=== PATIENT | female | born 1940 | race Caucasian/White ===

== ENCOUNTER 2019-03-29 21:24 | Inpatient (IN) | payer MEDICARE, MEDICAID, SELFPAY ==
[2019-04-06] VITALS (10 sets, daily range): BP systolic 110–146; BP diastolic 67–77; PULSE 69–101; RESP 14–24; TEMP 37.1–37.7; O2SAT 92–95
[2019-04-06] MEDS: acetaminophen 325 mg Tablet 650 MG PO ×4 (02:03→22:06)
[2019-04-06] MEDS: HYDROcodone-acetaminophen 5-325 mg Tablet 1 TAB PO (02:04)
[2019-04-06] MEDS: sodium chloride 0.9 % (flush) syringe 10 mL 2 ML IV (05:42)
[2019-04-06] MEDS: albuterol 8 gm MDI 2 PUFF INHALATION ×2 (08:30→15:31)
[2019-04-06] MEDS: topiramate 25 mg Tablet PO (10:48)
[2019-04-06] MEDS: dilTIAZem ER (24HR) 120 mg Capsule PO (10:48)
[2019-04-06] MEDS: loratadine 10 mg Tablet PO (10:48)
[2019-04-06] MEDS: ropinirole 0.25 mg Tablet 0.5 MG PO (10:48)
[2019-04-06] MEDS: gabapentin 300 mg Capsule PO ×3 (10:49→22:06)
[2019-04-06] MEDS: multivitamin therapeutic Tablet 1 TAB PO (10:49)
[2019-04-06] MEDS: pantoprazole DR 40 mg Tablet PO (10:49)
[2019-04-06] MEDS: calcium carb-vit d 600mg/400unit 1 Tablet 1 EACH PO ×2 (10:49→17:10)
[2019-04-06] MEDS: metoprolol tartrate 25 mg Tablet PO (10:49)
[2019-04-06] MEDS: chlorhexidine gluconate 0.12% Btl 473 mL 30 ML MUCOUS MEM ×4 (10:54→22:10)
[2019-04-06 12:31] LABS: Glucose Point of Care 96 mg/dL (70-110)
[2019-04-06 17:54] LABS: Glucose Point of Care 104 mg/dL (70-110)
--- NOTE | 2019-04-06 19:48 | PM.PN ---
Subjective Subjective: Interval history: No new complaints today patient feels well. Awaiting placement at SNF. Patient had indicated that she may want to go home however she lives by herself and at this time given her deconditioning and need for physical therapy it is not safe for her to be home by herself. We discussed with the son the situation yesterday, however he is unable to take care of his mother at this time as his has also recently left the hospital and will not be able to care for 2 people at the same time. C. difficile was negative from stool specimen. Medications: Reviewed: Yes Vitals/I&O/Wt Last Vital Signs Temp 99.5 F 04/06/19 15:31 Pulse 91 04/06/19 15:31 Resp 18 04/06/19 15:31 BP 126/76 04/06/19 15:31 Pulse Ox 92 04/06/19 15:31 04/06/19 04/06/19 04/06/19 06:59 14:59 22:59 Intake Total 360 / 360 240 / 600 Output Total 400 / 400 Balance -40 / -40 240 / 200 Weight last 48 hrs Weight 75.892 kg Weight 75.041 kg Physical Exam Const: COMMON NORMALS: no apparent distress, oriented x3 and alert Resp: COMMON NORMALS: normal respiratory effort, no retractions, no use of accessory muscles and clear to auscultation bilaterally AUSCULTATION: clear to auscultation bilaterally Cardio: COMMON NORMALS: regular rate, regular rhythm, S1 normal heart sound, S2 normal heart sound, no gallops, no murmurs and no rub RATE: regular rate RHYTHM: regular rhythm HEART SOUNDS: S1 normal and S2 normal GI: COMMON NORMALS: normal to inspection, nondistended, normoactive bowel sounds, non-tender, no hepatosplenomegaly and no masses PALPATION: Yes no hepatosplenomegaly Neuro: COMMON NORMALS: oriented x3 and no focal motor deficits SENSORIUM/ORIENTATION: Yes alert Data Labs: Other Labs: All Labs last 24 hrs except CBC/BMP 04/05/19 04/06/19 04/06/19 21:00 10:59 17:27 POC Glucose 143 H 96 104 Other Data: Other data: April 07, 2019 C. difficile PCR negative from stool. A&P Assessment and plan (1) Hip fracture: Patient participating with PT OT. Walked 5 feet today. She is status post surgery of the closed hip fracture. Still awaiting placement at [facility]way facility. We have not heard from her detention regarding insurance preauthorization and this has significantly held up for discharge. Status: Acute Code(s): S72.009A - Fracture of unspecified part of neck of unspecified femur, initial encounter for closed fracture (2) COPD (chronic obstructive pulmonary disease): Patient had mild exacerbation postoperatively which has since resolved. She is on Advair and Atrovent. Continuing oxygen supplementation by nasal cannula to keep sats over 90%. Status: Acute Code(s): J44.9 - Chronic obstructive pulmonary disease, unspecified (3) Anemia: Postop anemia. Also history of iron deficiency pending anemia. s/p Venofer 200 mg for 5 days. Status: Acute Code(s): D64.9 - Anemia, unspecified (4) Sinus tachycardia: Currently well controlled on Cardizem and Lopressor Status: Acute Code(s): R00.0 - Tachycardia, unspecified (5) Dementia: Continue home dose of Topamax hydroxyzine and Requip. Status: Acute Code(s): F03.90 - Unspecified dementia without behavioral disturbance Additional A&P Information Additional A&P Information: DVT prophylaxis with Lovenox Attestations Medical Necessity Statement*: Currently awaiting SNF placement pending authorization from insurance. Coding Level of Care Code Acute Interventional Nurse for Chg Fwd Diagnoses Hip fracture S72.009A COPD (chronic obstructive pulmonary disease) J44.9 Anemia D64.9 Sinus tachycardia R00.0 Dementia F03.90
[2019-04-06 21:44] LABS: Glucose Point of Care 152 mg/dL (70-110)
[2019-04-06] MEDS: enoxaparin 40 mg/0.4 mL Syringe SUBCUT (22:06)
[2019-04-06] MEDS: atorvastatin 40 mg Tablet 20 MG PO (22:07)
[2019-04-07] VITALS (11 sets, daily range): BP systolic 100–162; BP diastolic 52–71; PULSE 74–97; RESP 16–22; TEMP 36.8–37.8; O2SAT 91–95
[2019-04-07] MEDS: acetaminophen 325 mg Tablet 650 MG PO ×3 (04:27→15:32)
[2019-04-07 06:43] LABS: Glucose Point of Care 102 mg/dL (70-110)
[2019-04-07] MEDS: albuterol 8 gm MDI 2 PUFF INHALATION ×2 (08:21→17:07)
[2019-04-07] MEDS: calcium carb-vit d 600mg/400unit 1 Tablet 1 EACH PO ×2 (08:36→17:45)
[2019-04-07] MEDS: sennosides-docusate Tablet 2 TAB PO (08:36)
[2019-04-07] MEDS: topiramate 25 mg Tablet PO (08:36)
[2019-04-07] MEDS: pantoprazole DR 40 mg Tablet PO (08:36)
[2019-04-07] MEDS: gabapentin 300 mg Capsule PO ×2 (08:36→14:02)
[2019-04-07] MEDS: ropinirole 0.25 mg Tablet 0.5 MG PO (08:36)
[2019-04-07] MEDS: dilTIAZem ER (24HR) 120 mg Capsule PO (08:37)
[2019-04-07] MEDS: multivitamin therapeutic Tablet 1 TAB PO (08:37)
[2019-04-07] MEDS: metoprolol tartrate 25 mg Tablet PO (08:37)
[2019-04-07] MEDS: loratadine 10 mg Tablet PO (08:38)
[2019-04-07] MEDS: chlorhexidine gluconate 0.12% Btl 473 mL 30 ML MUCOUS MEM ×3 (08:38→17:45)
--- NOTE | 2019-04-07 11:02 | PC.SOCIAL ---
IMM Update Pg 2 of IMM given and explained to patient who voiced understanding. Copy in chart updated and copy provided to patient.
[2019-04-07 11:14] LABS: Glucose Point of Care 129 mg/dL (70-110)
--- NOTE | 2019-04-07 12:50 | PC.NURSE ---
Diarrhea pt has several bms
--- NOTE | 2019-04-07 14:56 | PC.CHAP ---
Pastoral Care Encounter/Spiritual Assessment Type of Contact [] Declined nuclear technician visit [] Patient/Family/Request visit [] Outpatient visit [x] Follow-up visit [] Physician referral [] Code/Alert [] Routine visit [] Staff referral [] Actively dying [x] Patient sleeping [] Family support [] [] Out of room [] Palliative care [] [] Receiving care in room [] Pre-surgical visit [] Trauma [] Long length of stay [] ICU visit [] Other: Relational/Emotional Strength [] Patient feels connected with others/family/visitors/staff [] Distress [] Loneliness/isolation [] Abandonment Spirituality of Patient [] Person of Peg [] Attends Confucianism of their Peg [] Believes in Prayer [] Reads Bible or Muslim materials [] There are Spiritual issues to be addressed Surgical Brace Maker Interventions [] Prayer [] Active listening [] Non-anxious presence [] Spiritual/emotional support [] Crisis/trauma care [] Spiritual counseling [] Bereavement support [] Provided bereavement packet [] Provided Bible/devotional materials [] Provided toy/stuffed animal, coloring book to patient or family member [] Completed spiritual assessment [] Provided Communion [] Anointing/Bison [] Salvation [] Other: Impact on Illness or Injury [] Angry [] Fearful [] Anxious [] Often cries [] Exhaustion [] Unable to work [] Unable to attend amish [] Unable to walk/stand [] Unable to read [] Unable to drive [] Unable to eat/drink [] Unable to sleep [] Unable to be with family [] Other: Summary Patient sleeping, Surgical Brace Maker will followup. Eduarda Time spent with patient
[2019-04-07 17:00] LABS: Glucose Point of Care 158 mg/dL (70-110)
--- NOTE | 2019-04-10 22:30 | PM.DCS ---
Discharge Providers Date of Admission: 03/29/19 21:24 Date of Discharge: 04/07/19 Attending Provider at Admission: Lisa Blakely MD Attending Provider at Discharge: Lisa Blakely MD Primary Care Provider: Estefania Khan Diagnoses at Discharge Discharge Diagnosis (1) Hip fracture: Status: Acute (2) COPD (chronic obstructive pulmonary disease): Status: Acute (3) Anemia: Status: Acute (4) Sinus tachycardia: Status: Acute (5) Dementia: Status: Acute Reason for Visit Reason for Visit: Reason For Visit: Left Intertrochanteric Hip Fracture Hospital Course Discharge Summary: Ms. Toro was admitted to the hospital after suffering a mechanical fall resulting in left intertrochanteric hip fracture. She underwent open reduction and internal fixation on 03/31/2019. Hospital course was notable for Anemia,which was seen to be due to combination of Iron deficiency anemia and acute blood loss during procedure for which she underwent blood transfusion in OR and completed 5 days of Iv iron. Post op, she was also noted to have mild COPD exacerbation, managed with nebulization and steroids. She worked well with PT. She is now being discharged to retirement in stable condition. Physical Exam Narrative: EXAM NARRATIVE: Gen: [place], alert and oriented, in no acute distress. CVS: S1S2N RS: clear to auscultation B/L Aabd: Soft, ND/NT, BS+ EXT: no cyanosis, clubbing or edema. Discharge Data Vitals: Last Vital Signs Temp 99.0 F 04/07/19 16:48 Pulse 75 04/07/19 17:12 Resp 19 H 04/07/19 17:09 BP 134/60 04/07/19 15:06 Pulse Ox 95 04/07/19 17:09 Discharge Plan Discharge Patient Disposition: Xfer SNF Condition: Stable Prescriptions: New sennosides-docusate sodium 8.6-50 mg Tablet 2 tab PO BID 10 Days Qty: 40 RF: 0 Continued pravastatin 40 mg tablet 40 mg PO BEDTIME RF: 0 alprazolam 0.25 mg tablet 0.5 mg PO QID PRN (Reason: Anxiety) RF: 0 gabapentin 300 mg capsule 300 mg PO TID RF: 0 diltiazem HCl 120 mg capsule,extended release 24hr 120 mg PO DAILY RF: 0 ProAir HFA 90 mcg/actuation HFA aerosol inhaler 2 puff INHALATION Q4H PRN (Reason: Shortness Of Breath) RF: 0 metoprolol tartrate 25 mg tablet 25 mg PO DAILY RF: 0 hydroxyzine pamoate 50 mg capsule 50 mg PO QID PRN (Reason: Anxiety) RF: 0 topiramate 25 mg Tablet 25 mg PO DAILY RF: 0 pantoprazole 40 mg Tablet,Delayed Release (Dr/Ec) 40 mg PO DAILY RF: 0 ferrous sulfate 325 mg (65 mg iron) Tablet 325 mg PO BID RF: 0 ropinirole 0.5 mg Tablet 0.5 mg PO DAILY RF: 0 promethazine 25 mg Tablet 25 mg PO TID PRN (Reason: Nausea And Vomiting) RF: 0 tizanidine 4 mg Capsule 4 mg PO QID PRN (Reason: Muscle Spasm) RF: 0 Calcium 600 with Vitamin D3 600 mg PO DAILY RF: 0 Changed Symbicort 160-4.5 mcg/actuation Hfa Aerosol Inhaler 2 puff INHALATION BID Qty: 0 RF: 0 Discontinued loratadine 10 mg Tablet 10 mg PO DAILY RF: 0 Discharge Orders: Discharge Order (Routine); Ordered 04/07/19 Ordered By: Lisa Blakely Referrals: [facility] [Outside] Bar Davalos MD [Physician] - 05/02/19 1:15 pm Discharge Diet: Usual diet Discharge Activity: As per PT/OT instructions Patient Instructions: COPD, Dementia (GEN), Anemia (DC), COPD Stoplight Discharge Date/Time: 04/07/19 18:52 Discharge Attestations Time Spent in Discharge Care*: less than 30 min Quality Metrics Clinical Quality Measures During this hospital stay, did patient experience: None Coding Level of Care Code Acute Dynamite Packing Machine Operator for Chg Fwd Diagnoses Hip fracture S72.009A COPD (chronic obstructive pulmonary disease) J44.9 Anemia D64.9 Sinus tachycardia R00.0 Dementia F03.90
== END 2019-04-07 18:52 | disposition skilled nursing facility (03) | DRG 481 ==
PROVIDERS: Admitting Provider Student in an Organized Health Care Education/Training Program; Emergency Provider Emergency Medicine; PCP Nurse Practitioner; Referring Provider Student in an Organized Health Care Education/Training Program; Visit Provider Student in an Organized Health Care Education/Training Program
DX: S72.142A Displaced intertrochanteric fracture of left femur, initial encounter for closed fracture (principal); J44.1 Chronic obstructive pulmonary disease with (acute) exacerbation; W19.XXXA Unspecified fall, initial encounter; Y93.9 Activity, unspecified; D50.8 Other iron deficiency anemias; Z23 Encounter for immunization; Y92.029 Unspecified place in mobile home as the place of occurrence of the external cause; K21.9 Gastro-esophageal reflux disease without esophagitis; F41.9 Anxiety disorder, unspecified; M19.90 Unspecified osteoarthritis, unspecified site; G89.29 Other chronic pain
CPT/HCPCS: 27245; 36415; 36416; 51702; 71045; 72192; 73502; 76000; 80053; 81001; 82306; 82962; 83540; 83550; 84484; 85007; 85014; 85018; 85025; 85027; 85610; 85730; 86850; 86900; 86901; 86920; 87493; 90686; 90732; 93005; 93010; 94640; 94762; 96374; 96375; 97110; 97116; 97161; 97165; 97530; 97535; 99024; 99221; 99222; 99231; 99232; 99284; 99285; C1713; J1644; J1650; J1756; J2270; J2405; J2704; J2710; J2920; J2930; J3010; J3490; J3535; J7512; J7611; J7626; P9016

== ENCOUNTER 2019-04-08 06:00 | Outpatient (CLI) | payer MEDICARE, MEDICAID, SELFPAY | END 2019-04-08 06:01 | disposition home or self-care (01) | LOC: LAB 03-22 15:07 | PROVIDERS: Family Provider Nurse Practitioner Family; PCP Family Medicine; Visit Provider Nurse Practitioner Family | DX: E78.5 Hyperlipidemia, unspecified (principal); D64.9 Anemia, unspecified | CPT/HCPCS: 80053; 82607; 83540; 83550; 84443; 85025 ==

== ENCOUNTER 2019-04-26 10:18 | Outpatient (RCR) | payer MEDICARE, MEDICAID, SELFPAY ==
[2019-04-26 11:07] LABS: Anion Gap 18.7 (5-19); Blood Urea Nitrogen 20 mg/dL (8-23); Calcium 10.1 mg/Dl (8.8-10.2); Carbon Dioxide 24 mmol/L (22-29); Chloride 104 mmol/L (98-107); Glucose 95 mg/dL (74-106); Potassium 4.7 mmol/L (3.5-5.1); Sodium 142 mmol/L (136-145)
[2019-04-26 11:26] LABS: Basophils # 0.1 10^3/uL (0.0-0.1); Eosinophils # 0.5 10^3/uL (0.0-0.8); Eosinophils % 6.9 %; Hematocrit 35.6 % (37.0-47.0); Hemoglobin 10.7 g/dL (11.5-15.3); Lymphocytes # 1.3 10^3/uL (0.8-4.8); Lymphocytes % 17.1 %; Mean Corpuscular HGB Conc 30.1 g/dL (30.0-36.0); Mean Corpuscular Hemoglobin 28.8 pg (28.0-34.0); Mean Corpuscular Volume 95.7 fL (81-99); Mean Platelet Volume 10.1 fL (7.4-10.4); Monocytes # 0.9 10^3/uL (0.2-0.9); Neutrophils # 4.3 10^3/uL (1.8-7.7); Neutrophils % 54.7 %; Nucleated Red Blood Cells % 0 %; Platelet Count 343 10^3/cmm (130-400); Red Blood Count 3.72 10^6/uL (4.1-5.3); Red Cell Distribution Width 16.2 % (12.1-15.1); White Blood Count 7.8 10^3/uL (4.0-10.0)
[2019-04-26 13:40] LABS: Slide Review Slide Review Perform
[2019-04-26 13:44] LABS: Absolute Eosinophils 0.6 10^3/cmm (0.0-0.7); Absolute Segmented Neutrophil 3.9 10/cmm (1.6-7.1); Anisocytosis 1+; Band Neutrophils Absolute 0.4 10^3/cmm (0.0-1.2); Eosinophils 8 %; Giant Platelets Trace; Lymphocytes 22 %; Lymphocytes Absolute 1.8 10^3/cmm (1.2-3.4); Monocytes Absolute 0.5 10^3/cmm (0.1-0.6); Platelet Estimate Normal (Normal); Segmented Neutrophils 51 %; Total Cells Counted 100 (0-100)
== END 2019-05-06 23:59 | disposition home or self-care (01) ==
LOC: LAB 10:18
PROVIDERS: Family Provider Nurse Practitioner Family; PCP Family Medicine; Visit Provider Nurse Practitioner Family
DX: Z01.89 Encounter for other specified special examinations (principal)
CPT/HCPCS: 80048; 85007; 85025

== ENCOUNTER → 2019-05-02 14:47 | Outpatient (BNVA) | payer MEDICARE, MEDICAID, SELFPAY | PROVIDERS: PCP Family Medicine; Visit Provider Orthopaedic Surgery | DX: Z87.81 Personal history of (healed) traumatic fracture (principal) | CPT/HCPCS: 73502 ==

== ENCOUNTER 2019-07-12 03:55 | Inpatient (IN) | payer MEDICARE, MEDICAID, SELFPAY ==
[2019-07-12] VITALS (14 sets, daily range): BP systolic 121–163; BP diastolic 70–87; PULSE 82–127; RESP 16–32; TEMP 37–38.8; O2SAT 93–97; BMI 25.0
--- NOTE | 2019-07-12 04:00 | XR_ITS ---
WS: [id number] CHEST XRAY TECHNIQUE: Portable chest. CLINICAL INFORMATION: fever COMPARISON: March 19, 2019 FINDINGS: Heart: Normal cardiac silhouette. Lungs: Moderate to advanced chronic emphysematous changes. Bones: Multiple acute appearing right posterior rib fractures approximately seventh, eighth, and nint h ribs. Small right pleural effusion. Advanced chronic degenerative changes both glenohumeral joints. Sclerosis and fragmentation and right glenohumeral joint. This is chronic in appearance unchanged. IMPRESSION: 1. Multiple acute appearing right posterior rib fractures. 2. Small right pleural effusion. 3. Moderate to advanced chronic emphysematous changes.
--- NOTE | 2019-07-12 04:01 | ECG_ITS ---
Measurements Intervals [place] Rate: 104 P: 64 MN: 163 QRS: 14 QRSD: 89 T: 58 QT: 332 QTc: [address] & T-WAVE ABNORMALITY ABNORMAL RHYTHM ECG Compared to ECG 03/29/2019 20:22:05 Sinus rhythm no longer present T-wave abnormality still present Electronically Signed On 07-12-2019 15:37:12 CDT by Brendan Palafox M.D. [email or web address]
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
[2019-07-12] MEDS: sodium chloride 0.9% 1,000 ML 999 ML IV (04:30)
[2019-07-12] MEDS: acetaminophen 325 mg Tablet 650 MG PO (04:30)
[2019-07-12 04:55] LABS: Alanine Aminotransferase 13 U/L (0-33); Albumin Level 3.9 g/dL (3.5-5.2); Alkaline Phosphatase 152 IU/L (35-105); Aspartate Amino Transferase 21 U/L (0-32); Blood Urea Nitrogen 29 mg/dL (8-23); Calcium 9.1 mg/dL (8.5-10.5); Carbon Dioxide 20 mmol/L (22-29); Chloride 109 mmol/L (98-107); Glucose 127 mg/dL (65-115); Osmolality Calculated 295 mOsm/kg (285-295); Sodium 143 mmol/L (136-145); Total Bilirubin 0.4 mg/dL (0.15-1.2); Total Protein 7.9 g/dL (6.6-8.7)
[2019-07-12 05:20] LABS: Basophils % 0.6 %; Eosinophils # 0.2 10^3/uL (0.0-0.8); Eosinophils % 2.8 %; Hematocrit 30.2 % (37.0-47.0); Hemoglobin 9.8 g/dL (11.5-15.3); Lymphocytes # 0.6 10^3/uL (0.8-4.8); Lymphocytes % 9.1 %; Mean Corpuscular HGB Conc 32.5 g/dL (30.0-36.0); Mean Corpuscular Hemoglobin 28.7 pg (28.0-34.0); Mean Corpuscular Volume 88.6 fL (81-99); Monocytes # 0.9 10^3/uL (0.2-0.9); Monocytes % 13.3 %; Neutrophils # 4.7 10^3/uL (1.8-7.7); Neutrophils % 73.4 %; Nucleated Red Blood Cells % 0 %; Platelet Count 225 10^3/cmm (130-400); Red Blood Count 3.41 10^6/uL (4.1-5.3); Red Cell Distribution Width 13.9 % (12.1-15.1); White Blood Count 6.4 10^3/uL (4.0-10.0)
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
--- NOTE | 2019-07-12 05:25 | CTR_ITS ---
PROCEDURE INFORMATION: Exam: CT Head Without Contrast Exam date and time: 07/12/2019 5:39 AM Age: 78 years old Clinical indication: Altered mental status/memory loss; Additional info: Injury TECHNIQUE: Imaging protocol: Computed tomography of the head without contrast. Total DLP: 771.66 mGy-cm Radiation optimization: All CT scans at this facility use at least one of these dose optimization techniques: automated exposure control; mA and/or kV adjustment per patient size (includes targeted exams where dose is matched to clinical indication); or iterative reconstruction. COMPARISON: CT head wo con* [id number] 09/28/2017 10:56 AM FINDINGS: Brain: There is diffuse cerebral atrophy and chronic microvascular white matter disease. There is symmetric mineralization in the globus pallidus. There is no acute intracranial hemorrhage. Ventricles: There is no significant ventricular dilation. The basal cisterns are unremarkable. Bones/joints: Unremarkable. No acute fracture. Sinuses: The paranasal sinuses are clear. Mastoid air cells: Right mastoid effusion. Left mastoid air cells are clear. Orbits: Left globe prosthesis. Soft tissues: Extracranial soft tissues are unremarkable. CT/CT head wo con* [id number] IMPRESSION: 1. No acute intracranial abnormality. 2. Right mastoid effusion. Radiation Dose CTDIVOL = (mGy): DLP = 771.66 (mGy-cm)
[2019-07-12] MEDS: cefTRIAXone 1,000 MG in sodium chloride 0.9% (plus) 50 ML 100 MG IV (05:26)
[2019-07-12] MEDS: HYDROmorphone 1 mg/mL INJ 1 mL 0.5 MG IVP (05:28)
[2019-07-12 05:39] LABS: Influenza A by IFA Negative (Negative); Influenza B by IFA Negative (Negative)
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
[2019-07-12 05:47] LABS: Lactate (Lactic Acid level) 1.4 mmol/L (0.5-2.2)
[2019-07-12] MEDS: iodixanol 320 mg/mL 100mL Btl IV (05:47)
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
[2019-07-12 05:57] LABS: INR 1.15 (0.8-1.2)
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
[2019-07-12 06:25] LABS: Add Urine Microscopic? YES; Bilirubin Urine Neg (NEGATIVE); Blood Urine Neg (Negative); Glucose Urine UA Norm (Normal); Ketones Urine Negative (Negative); Leukocyte Esterase Urine Negative (Negative); Nitrate Urine Positive (Negative); Protein Urine Neg (Negative); Specific Gravity, Urine 1.015 (1.005-1.030); Urine Appearance Hazy (CLEAR); Urine Color Yellow (Yellow); Urobilinogen Urine 1 mg/dL (Negative); pH Urine 5 (5-7)
[2019-07-12 06:26] LABS: Add Urine Culture? Yes; Bacteria Urine 4+; RBC Urine 0-4 /hpf (0-2); Squamous Epithelial Cell Urine 0-4 (0-5); WBC Urine 15-25 /hpf (0-5)
--- NOTE | 2019-07-12 08:01 | PC.NURSE ---
patient placed on bedpan with good results, no other needs at this time
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
[2019-07-12 10:59] LABS: Ferritin 424 ng/mL (15-150); Iron 20 ug/dL (37-145)
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
[2019-07-12] MEDS: levofloxacin-dextrose 5 % 750 MG/150 ML PREMIX 150 MG IV (12:00)
[2019-07-12] MEDS: sodium chloride 0.9% 1,000 ML 100 ML IV (12:00)
[2019-07-12] MEDS: enoxaparin 40 mg/0.4 mL Syringe SUBCUT (12:18)
[2019-07-12 12:50] LABS: Thyroid Stimulating Hormone 1.27 uIU/mL (0.27-4.20)
[2019-07-12] MEDS: gabapentin 300 mg Capsule PO ×2 (14:59→20:28)
[2019-07-12] MEDS: tizanidine 4 mg Tablet PO (15:55)
[2019-07-12] MEDS: ALPRAZolam 0.5 mg Tablet PO (15:55)
[2019-07-12] MEDS: ferrous sulfate EC 325 mg Tablet PO (17:16)
[2019-07-12] MEDS: atorvastatin 40 mg Tablet 20 MG PO (20:28)
[2019-07-12] MEDS: morphine 4 mg/mL SDV 1 mL 2 MG IVP (20:29)
[2019-07-12] MEDS: ropinirole 0.25 mg Tablet 0.5 MG PO (20:29)
[2019-07-12 20:46] LABS: Coronavirus Lab Test PTC Negative
[2019-07-13] VITALS (13 sets, daily range): BP systolic 118–173; BP diastolic 60–96; PULSE 89–118; RESP 18–32; TEMP 37–38.3; O2SAT 90–95
--- NOTE | 2019-07-13 01:00 | PC.PHAR ---
RENAL DOSING FOR LEVAQUIN 750MG Q24H CHANGED TO Q48H DUE TO CRCL OF 36.7
[2019-07-13] MEDS: sodium chloride 0.9% 1,000 ML 100 ML IV ×2 (01:50→08:54)
[2019-07-13] MEDS: acetaminophen 325 mg Tablet 650 MG PO ×2 (01:50→17:00)
[2019-07-13 04:08] LABS: Basophils % 0.3 %; Eosinophils # 0.1 10^3/uL (0.0-0.8); Eosinophils % 1.5 %; Hematocrit 29.4 % (37.0-47.0); Hemoglobin 9.6 g/dL (11.5-15.3); Lymphocytes # 0.7 10^3/uL (0.8-4.8); Lymphocytes % 9.6 %; Mean Corpuscular HGB Conc 32.7 g/dL (30.0-36.0); Mean Corpuscular Hemoglobin 29.1 pg (28.0-34.0); Mean Corpuscular Volume 89.1 fL (81-99); Mean Platelet Volume 9.7 fL (7.4-10.4); Monocytes % 14.6 %; Neutrophils % 73.4 %; Nucleated Red Blood Cells % 0 %; Platelet Count 196 10^3/cmm (130-400); Red Cell Distribution Width 13.5 % (12.1-15.1); White Blood Count 6.8 10^3/uL (4.0-10.0)
[2019-07-13 04:18] LABS: Anion Gap 18.9 (5-19); Blood Urea Nitrogen 13 mg/dL (8-23); Calcium 8.4 mg/dL (8.5-10.5); Carbon Dioxide 19 mmol/L (22-29); Chloride 104 mmol/L (98-107); Glucose 120 mg/dL (65-115); Osmolality Calculated 283 mOsm/kg (285-295); Potassium 3.9 mmol/L (3.5-5.1); Sodium 138 mmol/L (136-145)
[2019-07-13] MEDS: morphine 4 mg/mL SDV 1 mL 2 MG IVP ×3 (04:18→19:27)
[2019-07-13] MEDS: ALPRAZolam 0.5 mg Tablet PO (04:18)
[2019-07-13] MEDS: pantoprazole DR 40 mg Tablet PO (08:57)
[2019-07-13] MEDS: metoprolol tartrate 25 mg Tablet PO ×2 (08:57→17:31)
[2019-07-13] MEDS: gabapentin 300 mg Capsule PO ×3 (08:57→21:22)
[2019-07-13] MEDS: dilTIAZem ER (24HR) 120 mg Capsule PO (08:57)
[2019-07-13] MEDS: ferrous sulfate EC 325 mg Tablet PO ×2 (08:58→17:31)
[2019-07-13] MEDS: topiramate 25 mg Tablet PO (08:58)
--- NOTE | 2019-07-13 09:03 | CT_ITS ---
WS: [id number] NONCONTRAST CT LEFT KNEE TECHNIQUE: CT left knee with coronal and sagittal reformatted images. CLINICAL INFORMATION: left knee swellng, tenderness, r/o septic joint/arthritis COMPARISON: None. DLP: 240.[address] scans at [facility] use at least one of these dose optimization techniques: automat ed exposure control; mA and/or kV adjustment per patient size (includes targeted exams where dose is matched to clinical indication); or iterative reconstruction. FINDINGS: Moderate tricompartmental arthritis left knee with joint space narrowing. Large suprapatellar joint e ffusion. Intramedullary anupama distal femur appears well seated. Distal quadriceps and patella tendons a ppear intact. Well-corticated interarticular loose bodies. Hypertrophic patella with subchondral cyst ic change. Normal tibial plateau. Fibular head is normal in appearance. Vascular calcification. Hypertrophic ch anges along the joint line. No visualized acute fractures. CT/CT knee LT wo con* [id number] IMPRESSION: 1. Moderate tricompartmental arthritis with joint space narrowing. 2. Moderate to large suprapatellar effusion. No definite visualized fractures. 3. Moderate diffuse soft tissue edema involving the distal thigh and prepatell ar soft tissues may be posttraumatic versus Cellulitis. Recommend correlation f or infection. 4. Well-corticated intra-articular loose bodies. 5. Vascular calcification. 6. Intramedullary anupama in the distal femur appears well seated.
[2019-07-13 09:14] LABS: Procalcitonin 0.13 ng/mL (0-0.5)
[2019-07-13 09:25] LABS: C Reactive Protein 112.5 mg/L (0.0-4.9)
[2019-07-13 10:04] LABS: Erythrocyte Sedimentation Rate 77 mm/hr (0-15)
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
--- NOTE | 2019-07-13 10:12 | PC.NURSE ---
CALCIUM-CARBONATE VIT D IS ORDERED TO GIVE 600 TABLETS, NOTIFIED HOSPITALIST, STATED WOULD CORRECT ORDER.
--- NOTE | 2019-07-13 10:41 | PC.NURSE ---
PATIENT IS OFF UNIT TO CT
--- NOTE | 2019-07-13 14:36 | CTR_ITS ---
PROCEDURE INFORMATION: Exam: CT Abdomen And Pelvis Without Contrast Exam date and time: 07/13/2019 2:45 PM Age: 78 years old Clinical indication: Abdominal pain; Other: UTI with stone; Additional info: R/O pyelonephriis or sotne with UTI TECHNIQUE: Imaging protocol: Computed tomography of the abdomen and pelvis without contrast. Total DLP: 923.07 mGy-cm Radiation optimization: All CT scans at this facility use at least one of these dose optimization techniques: automated exposure control; mA and/or kV adjustment per patient size (includes targeted exams where dose is matched to clinical indication); or iterative reconstruction. COMPARISON: CT pelvis wo con [id number] 03/30/2019 11:19 AM FINDINGS: Lungs: Dependent atelectasis. Small right and trace left pleural effusions. Liver: Normal. No mass. Gallbladder and bile ducts: Normal. No calcified stones. No ductal dilation. Pancreas: Normal. No ductal dilation. Spleen: Calcified granulomas in the spleen. Adrenals: Normal. No mass. Kidneys and ureters: 3.4 cm left renal cyst. The kidneys are otherwise normal. No calculus or hydronephrosis. Stomach and bowel: Unremarkable. No obstruction. No mucosal thickening. Appendix: The appendix is not visualized. Intraperitoneal space: Unremarkable. No free air. No significant fluid collection. Vasculature: Unremarkable. No abdominal aortic aneurysm. Lymph nodes: Unremarkable. No enlarged lymph nodes. Bladder: Unremarkable as visualized. Reproductive: The uterus and right ovary are not visualized. Probable retained left ovary. Bones/joints: Rods and screws in the bilateral femurs. Severe degenerative changes and anterior subluxation at L4-L5. Chronic bilateral L5 pars fractures. Soft tissues: Small fat containing umbilical hernia. CT/CT abdomen pelvis con [id number] IMPRESSION: 1. No renal calculus or hydronephrosis. 2. Benign left renal cyst. No further workup recommended. 3. Small right and trace left pleural effusions. Radiation Dose CTDIVOL = (mGy): DLP = 923.07 (mGy-cm)
[2019-07-13] MEDS: enoxaparin 40 mg/0.4 mL Syringe SUBCUT (15:02)
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
[2019-07-13] MEDS: vancomycin 1,000 MG in sodium chloride 0.9% 250 ML 250 MG IV (17:06)
[2019-07-13 17:25] LABS: Apprearance, Body Fluid TURBID (CLEAR); Body Fluid WBC 8320 /uL; Color, Body Fluid AMBER (PALE YELLOW); RBC, Body Fluid 10 10^3/uL (0-0)
[2019-07-13 17:26] LABS: Appearance Synovial Fluid TURBID (CLEAR); Color Synovial Fluid AMBER (PALE YELLOW); RBC Synovial Fluid 10 10^3/uL (0-0); WBC Synovial Fluid 8320 /uL (0-150)
[2019-07-13 17:27] LABS: PATH Referal YES
[2019-07-13 18:18] LABS: Glucose Synovial Fluid 96 mg/dL
[2019-07-13] MEDS: ondansetron 2 mg/ML SDV 2 mL 4 MG IVP (19:28)
[2019-07-13] MEDS: atorvastatin 40 mg Tablet 20 MG PO (21:21)
[2019-07-13] MEDS: ropinirole 0.25 mg Tablet 0.5 MG PO (21:22)
[2019-07-14] VITALS (13 sets, daily range): BP systolic 100–143; BP diastolic 52–66; PULSE 77–99; RESP 16–24; TEMP 36.5–38.8; O2SAT 92–100
[2019-07-14] MEDS: ALPRAZolam 0.5 mg Tablet PO (00:24)
[2019-07-14] MEDS: morphine 4 mg/mL SDV 1 mL 2 MG IVP ×2 (01:11→23:13)
[2019-07-14] MEDS: tizanidine 4 mg Tablet PO (04:17)
[2019-07-14] MEDS: hyDROXYzine 25 mg Capsule 50 MG PO (04:17)
[2019-07-14] MEDS: sodium chloride 0.9% 1,000 ML 100 ML IV ×3 (04:24→20:24)
[2019-07-14 05:04] LABS: Basophils % 0.5 %; Eosinophils # 0.2 10^3/uL (0.0-0.8); Eosinophils % 3.2 %; Hematocrit 28.6 % (37.0-47.0); Hemoglobin 9.1 g/dL (11.5-15.3); Lymphocytes # 0.7 10^3/uL (0.8-4.8); Lymphocytes % 13.2 %; Mean Corpuscular HGB Conc 31.8 g/dL (30.0-36.0); Mean Corpuscular Hemoglobin 28.9 pg (28.0-34.0); Mean Corpuscular Volume 90.8 fL (81-99); Mean Platelet Volume 9.8 fL (7.4-10.4); Monocytes # 0.8 10^3/uL (0.2-0.9); Monocytes % 13.4 %; Neutrophils # 3.9 10^3/uL (1.8-7.7); Neutrophils % 68.6 %; Nucleated Red Blood Cells % 0 %; Platelet Count 189 10^3/cmm (130-400); Red Blood Count 3.15 10^6/uL (4.1-5.3); Red Cell Distribution Width 13.7 % (12.1-15.1); White Blood Count 5.6 10^3/uL (4.0-10.0)
[2019-07-14 05:26] LABS: Alanine Aminotransferase 7 U/L (0-33); Albumin Level 2.7 g/dL (3.5-5.2); Alkaline Phosphatase 114 IU/L (35-105); Aspartate Amino Transferase 13 U/L (0-32); Blood Urea Nitrogen 15 mg/dL (8-23); Calcium 8.1 mg/dL (8.5-10.5); Carbon Dioxide 20 mmol/L (22-29); Chloride 108 mmol/L (98-107); Globulin 3.6 g/dL (1.3-4.6); Glucose 103 mg/dL (65-115); Magnesium 1.2 mg/dL (1.7-2.3); Osmolality Calculated 289 mOsm/kg (285-295); Phosphorus 3.5 mg/dL (2.5-4.5); Sodium 141 mmol/L (136-145); Total Bilirubin 0.3 mg/dL (0.15-1.2); Total Protein 6.3 g/dL (6.6-8.7)
[2019-07-14] MEDS: calcium carb-vit d 600mg/400unit 1 Tablet 600 EACH PO (08:56)
[2019-07-14] MEDS: metoprolol tartrate 25 mg Tablet PO ×2 (08:56→16:59)
[2019-07-14] MEDS: gabapentin 300 mg Capsule PO ×3 (08:57→20:25)
[2019-07-14] MEDS: pantoprazole DR 40 mg Tablet PO (08:57)
[2019-07-14] MEDS: dilTIAZem ER (24HR) 120 mg Capsule PO (08:57)
[2019-07-14] MEDS: ferrous sulfate EC 325 mg Tablet PO ×2 (08:57→16:59)
[2019-07-14] MEDS: topiramate 25 mg Tablet PO (08:58)
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
[2019-07-14] MEDS: magnesium sulfate premix 2 GM/50 ML PIGGYBACK IV (10:44)
--- NOTE | 2019-07-14 15:15 | PC.RESP ---
Information to patient for Pulmonary Rehab.
[2019-07-14] MEDS: enoxaparin 40 mg/0.4 mL Syringe SUBCUT (15:31)
[2019-07-14] MEDS: atorvastatin 40 mg Tablet 20 MG PO (20:25)
[2019-07-14] MEDS: ropinirole 0.25 mg Tablet 0.5 MG PO (20:25)
[2019-07-15] VITALS (13 sets, daily range): BP systolic 118–149; BP diastolic 62–79; PULSE 64–114; RESP 15–20; TEMP 36.4–37.7; O2SAT 94–98
--- NOTE | 2019-07-15 00:10 | PC.NURSE ---
Pt alerted staff the need to urinate, bed bhat placed. Pt missed bed bhat and a large amount of urine was noted in bed linen. bed linens changed
[2019-07-15] MEDS: acetaminophen 325 mg Tablet 650 MG PO ×3 (00:39→15:45)
[2019-07-15] MEDS: ALPRAZolam 0.5 mg Tablet PO (01:23)
--- NOTE | 2019-07-15 01:53 | PC.NURSE ---
PAIN Pt COMPLAINED OF RIGHT SIDED RIB PAIN 7/10 PAIN SCALE, 2MG MORPHINE ADMINISTERED PER ORDERS AT 1115 BY JAKE WARD RN. Pt REASSESSED, WAS RESTING WITH EYES CLOSED, RESPIRATIONS 18. Pt CONTINUED TO COMPLAIN OF PAIN 6/10, 650MG OF TYLENOL ADMINISTERED PER ORDERS AT 0040 WITH POSITION CHANGE. Pt REASSESSED STATING NO RELIEF OF PAIN. Pt STATED SHE WANTED THE PAIN TO QUIT SO SHE COULD GET SOME SLEEP. .5 MG OF XANAX ADMINISTERED PER ORDERS AT 0120, WENT AND REASSESSED, Pt WAS CRYING. STAFF REPOSITIONED Pt AT THIS TIME. WILL CONTINUE TO MONITOR AND REEVALUATE.
--- NOTE | 2019-07-15 02:02 | PC.NURSE ---
PILLOWS PLACED BILATERALLY TO PROMOTE COMFORT AND EASE RIB PAIN
--- NOTE | 2019-07-15 02:41 | PC.NURSE ---
PAIN Pt CONTINUES TO COMPLAIN OF PAIN 8/[address] DAWN CONTACTED AT 0220. TELEPHONE ORDER 2MG DILAUDID IVP ONCE NOW PER
[2019-07-15] MEDS: HYDROmorphone 1 mg/mL INJ 1 mL 2 MG IVP (03:07)
--- NOTE | 2019-07-15 03:38 | PC.NURSE ---
1 MG DILAUDID GIVEN BY RASHEED GÓMEZ RN AT 0307. REASSESSED AT 0337, Pt IS RESTING WITH EYES CLOSED, BREATHING NORMAL AND UNLABORED. RESPIRATION 20 O2 IS 93% ON 3L NC, HR 92. WILL CONTINUE TO MONITOR
[2019-07-15 05:07] LABS: Basophils % 0.4 %; Eosinophils # 0.2 10^3/uL (0.0-0.8); Eosinophils % 2.8 %; Hematocrit 30.2 % (37.0-47.0); Hemoglobin 9.6 g/dL (11.5-15.3); Lymphocytes # 0.8 10^3/uL (0.8-4.8); Lymphocytes % 14.5 %; Mean Corpuscular HGB Conc 31.8 g/dL (30.0-36.0); Mean Corpuscular Volume 91.2 fL (81-99); Mean Platelet Volume 9.7 fL (7.4-10.4); Monocytes # 0.7 10^3/uL (0.2-0.9); Monocytes % 13.3 %; Neutrophils # 3.7 10^3/uL (1.8-7.7); Neutrophils % 67.5 %; Nucleated Red Blood Cells % 0 %; Platelet Count 212 10^3/cmm (130-400); Red Blood Count 3.31 10^6/uL (4.1-5.3); Red Cell Distribution Width 13.7 % (12.1-15.1); White Blood Count 5.4 10^3/uL (4.0-10.0)
[2019-07-15 05:23] LABS: Alanine Aminotransferase 9 U/L (0-33); Albumin Level 2.9 g/dL (3.5-5.2); Alkaline Phosphatase 159 IU/L (35-105); Anion Gap 15.7 (5-19); Aspartate Amino Transferase 20 U/L (0-32); Blood Urea Nitrogen 13 mg/dL (8-23); Calcium 8.6 mg/dL (8.5-10.5); Carbon Dioxide 20 mmol/L (22-29); Chloride 106 mmol/L (98-107); Glucose 109 mg/dL (65-115); Magnesium 1.7 mg/dL (1.7-2.3); Osmolality Calculated 283 mOsm/kg (285-295); Phosphorus 3.9 mg/dL (2.5-4.5); Potassium 3.7 mmol/L (3.5-5.1); Sodium 138 mmol/L (136-145); Total Bilirubin 0.3 mg/dL (0.15-1.2); Total Protein 6.9 g/dL (6.6-8.7)
[2019-07-15] MEDS: sodium chloride 0.9% 1,000 ML 100 ML IV (08:11)
[2019-07-15] MEDS: metoprolol tartrate 25 mg Tablet PO ×2 (08:14→17:21)
[2019-07-15] MEDS: gabapentin 300 mg Capsule PO ×3 (09:16→20:54)
[2019-07-15] MEDS: pantoprazole DR 40 mg Tablet PO (09:19)
[2019-07-15] MEDS: dilTIAZem ER (24HR) 120 mg Capsule PO (09:19)
[2019-07-15] MEDS: ferrous sulfate EC 325 mg Tablet PO (09:19)
[2019-07-15] MEDS: calcium carb-vit d 600mg/400unit 1 Tablet 600 EACH PO (09:51)
[2019-07-15] MEDS: topiramate 25 mg Tablet PO (09:51)
--- NOTE | 2019-07-15 10:28 | USCV_ITS ---
Francy Toro Age: 78 Gender: F : 1940 Exam Date: 07/15/2019 15:08 Ordering Phys: Kolby Arndt MD Technologist: Tano Alexander Exam Location: [facility] [place] Indication: R/O DVT HISTORY: Bed stasis. PROCEDURES: Examined bilaterally were the greater saphenous, common femoral, femoral, profunda, popliteal, posterior tibial veins, and peroneal trunk.. FINDINGS: All veins examined appear free of thrombus. No filling defects on color Doppler flow analysis. Vein flow and caliber vary with respiration. Increase in venous flow with augmentation. All veins appear compressible.. CONCLUSIONS No evidence of right lower extremity DVT. No evidence of left lower extremity DVT. Adan Beltran MD (Electronically Signed) Final Date: 15 July 2019 15:58 S
--- NOTE | 2019-07-15 10:50 | XR_ITS ---
WS: [id number] CHEST XRAY TECHNIQUE: Portable chest. CLINICAL INFORMATION: sob COMPARISON: July 12, 2019 FINDINGS: Heart: Cardiomegaly. Aortic calcification. Lungs: Moderate chronic emphysematous changes with chronic appearing interstitial thickening. No acut e pulmonary infiltrates. Bones: Mild thoracic curve convex right. Hypertrophic changes thoracic spine. Advanced degenerative a rthritis right glenohumeral joint. XR/XR chest 1V portable [id number] IMPRESSION: 1. Moderate chronic emphysematous changes with chronic appearing interstitial thickening. 2. No acute pulmonary infiltrates. 3. Stable cardiomegaly.
[2019-07-15 11:54] LABS: Procalcitonin 0.24 ng/mL (0-0.5)
[2019-07-15 12:04] LABS: C Reactive Protein 135.4 mg/L (0.0-4.9)
[2019-07-15] MEDS: levofloxacin-dextrose 5 % 750 MG/150 ML PREMIX 100 MG IV (14:03)
[2019-07-15] MEDS: enoxaparin 40 mg/0.4 mL Syringe SUBCUT (14:04)
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
--- NOTE | 2019-07-15 16:32 | XR_ITS ---
WS: [id number] WRIST LEFT TECHNIQUE: 2 views of the left wrist CLINICAL INFORMATION: swelling, limited ROM, PAIN COMPARISON: None. FINDINGS: Osteopenia. Slight ulnar positive variance. Advanced degenerative arthritis at the radiocarpal joint. Normal scaphoid and lunate. Diffuse soft tissue edema involving the wrist. Vascular calcification. No visualized acute fractures. XR/XR wrist LT 2V [id number] IMPRESSION: 1. Diffuse soft tissue edema. Recommend correlation for cellulitis. 2. No acute fractures. 3. Advanced degenerative arthritis at the radiocarpal joint with slight ulna p ositive variance.
[2019-07-15] MEDS: ropinirole 0.25 mg Tablet 0.5 MG PO (20:54)
[2019-07-15] MEDS: atorvastatin 40 mg Tablet 20 MG PO (20:54)
[2019-07-16] VITALS (8 sets, daily range): BP systolic 133–174; BP diastolic 58–80; PULSE 91–101; RESP 1–18; TEMP 36.6–37.3; O2SAT 95–100
[2019-07-16] MEDS: acetaminophen 325 mg Tablet 650 MG PO ×2 (00:28→08:31)
[2019-07-16 05:08] LABS: Basophils % 0.2 %; Eosinophils # 0.3 10^3/uL (0.0-0.8); Eosinophils % 5.9 %; Hemoglobin 8.8 g/dL (11.5-15.3); Lymphocytes # 0.6 10^3/uL (0.8-4.8); Lymphocytes % 13.2 %; Mean Corpuscular HGB Conc 31.4 g/dL (30.0-36.0); Mean Corpuscular Hemoglobin 27.9 pg (28.0-34.0); Mean Corpuscular Volume 88.9 fL (81-99); Mean Platelet Volume 9.7 fL (7.4-10.4); Monocytes # 0.5 10^3/uL (0.2-0.9); Neutrophils # 2.9 10^3/uL (1.8-7.7); Neutrophils % 67.3 %; Nucleated Red Blood Cells % 0 %; Platelet Count 231 10^3/cmm (130-400); Red Blood Count 3.15 10^6/uL (4.1-5.3); Red Cell Distribution Width 13.7 % (12.1-15.1); White Blood Count 4.2 10^3/uL (4.0-10.0)
[2019-07-16 05:34] LABS: Alanine Aminotransferase 13 U/L (0-33); Albumin Level 2.8 g/dL (3.5-5.2); Alkaline Phosphatase 178 IU/L (35-105); Anion Gap 13.7 (5-19); Aspartate Amino Transferase 25 U/L (0-32); Blood Urea Nitrogen 13 mg/dL (8-23); Calcium 9.3 mg/dL (8.5-10.5); Carbon Dioxide 21 mmol/L (22-29); Chloride 106 mmol/L (98-107); Globulin 3.5 g/dL (1.3-4.6); Glucose 113 mg/dL (65-115); Magnesium 1.7 mg/dL (1.7-2.3); Osmolality Calculated 281 mOsm/kg (285-295); Phosphorus 3.3 mg/dL (2.5-4.5); Potassium 3.7 mmol/L (3.5-5.1); Sodium 137 mmol/L (136-145); Total Bilirubin 0.2 mg/dL (0.15-1.2); Total Protein 6.3 g/dL (6.6-8.7)
[2019-07-16] MEDS: metoprolol tartrate 25 mg Tablet PO (08:31)
[2019-07-16] MEDS: gabapentin 300 mg Capsule PO (08:31)
[2019-07-16] MEDS: ferrous sulfate EC 325 mg Tablet PO (08:32)
[2019-07-16] MEDS: calcium carb-vit d 600mg/400unit 1 Tablet 600 EACH PO (08:32)
[2019-07-16] MEDS: pantoprazole DR 40 mg Tablet PO (08:32)
[2019-07-16] MEDS: topiramate 25 mg Tablet PO (08:33)
[2019-07-16] MEDS: dilTIAZem ER (24HR) 120 mg Capsule PO (08:33)
--- NOTE | 2019-07-16 09:49 | PC.SOCIAL ---
IMM Update Pg 2 of IMM given and explained to patient who verbalized understanding. Copy provided to patient.
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
== END 2019-07-16 11:58 | disposition skilled nursing facility (03) | DRG 565 ==
LOC: ER 09:18 → MEDSURG 14:34
PROVIDERS: Emergency Medicine; Specialist; Admitting Provider Family Medicine; Emergency Provider Family Medicine; Family Provider Nurse Practitioner Family; PCP Family Medicine; Visit Provider Family Medicine
DX: M25.462 Effusion, left knee (principal); S22.41XA Multiple fractures of ribs, right side, initial encounter for closed fracture; T74.11XA Adult physical abuse, confirmed, initial encounter; N30.00 Acute cystitis without hematuria; S42.101D Fracture of unspecified part of scapula, right shoulder, subsequent encounter for fracture with routine healing; S22.39XD Fracture of one rib, unspecified side, subsequent encounter for fracture with routine healing; S22.050D Wedge compression fracture of T5-T6 vertebra, subsequent encounter for fracture with routine healing; X58.XXXA Exposure to other specified factors, initial encounter; Y92.019 Unspecified place in single-family (private) house as the place of occurrence of the external cause; Y04.2XXA Assault by strike against or bumped into by another person, initial encounter; I48.0 Paroxysmal atrial fibrillation; J44.9 Chronic obstructive pulmonary disease, unspecified; D64.9 Anemia, unspecified; E78.5 Hyperlipidemia, unspecified; Z91.81 History of falling; M54.9 Dorsalgia, unspecified; F41.9 Anxiety disorder, unspecified; M17.12 Unilateral primary osteoarthritis, left knee; F03.90 Unspecified dementia, unspecified severity, without behavioral disturbance, psychotic disturbance, mood disturbance, and anxiety; K57.90 Diverticulosis of intestine, part unspecified, without perforation or abscess without bleeding; Z98.890 Other specified postprocedural states; Z96.642 Presence of left artificial hip joint; Z90.01 Acquired absence of eye; Z79.51 Long term (current) use of inhaled steroids; J98.8 Other specified respiratory disorders; S22.21XD Fracture of manubrium, subsequent encounter for fracture with routine healing; B96.20 Unspecified Escherichia coli [E. coli] as the cause of diseases classified elsewhere
CPT/HCPCS: 12345; 36415; 70450; 71045; 71275; 73100; 73562; 73700; 74176; 77075; 80048; 80053; 80500; 81001; 82728; 82945; 83540; 83605; 83735; 84100; 84145; 84443; 85025; 85045; 85610; 85651; 86140; 87040; 87070; 87075; 87077; 87086; 87186; 87205; 87635; 87804; 89050; 93005; 93970; 94640; 94760; 94762; 96372; 96375; 97110; 97116; 97161; 97166; 97530; 97535; 99284; G0378; J0696; J0743; J1170; J1650; J1956; J2270; J2405; J3370; J3475; J7030; J7050; Q9967

== ENCOUNTER → 2020-08-03 07:56 | Outpatient (BNVA) | payer MEDICARE, MEDICAID, SELFPAY | PROVIDERS: Family Provider Nurse Practitioner Family; PCP Nurse Practitioner Family; Visit Provider Psychiatry & Neurology Psychiatry | DX: F41.9 Anxiety disorder, unspecified (principal); F32.9 Major depressive disorder, single episode, unspecified | CPT/HCPCS: 90792 ==

== ENCOUNTER → 2020-10-26 10:36 | Outpatient (BNVA) | payer MEDICARE, MEDICAID, SELFPAY | PROVIDERS: Family Provider Nurse Practitioner Family; PCP Nurse Practitioner Family; Visit Provider Psychiatry & Neurology Psychiatry | DX: F41.9 Anxiety disorder, unspecified (principal); F32.9 Major depressive disorder, single episode, unspecified | CPT/HCPCS: 99214 ==

== ENCOUNTER → 2021-01-25 08:31 | Outpatient (BNVA) | payer MEDICARE, MEDICAID, SELFPAY | PROVIDERS: Family Provider Nurse Practitioner Family; PCP Nurse Practitioner Family; Visit Provider Psychiatry & Neurology Psychiatry | DX: F41.9 Anxiety disorder, unspecified (principal); F32.9 Major depressive disorder, single episode, unspecified | CPT/HCPCS: 99214 ==

== ENCOUNTER → 2021-04-18 10:22 | Outpatient (BNVA) | payer MEDICARE, MEDICAID, SELFPAY | PROVIDERS: Family Provider Nurse Practitioner Family; PCP Nurse Practitioner Family; Referring Provider Nurse Practitioner Family; Visit Provider Physician Assistant | DX: S52.502A Unspecified fracture of the lower end of left radius, initial encounter for closed fracture (principal); W19.XXXA Unspecified fall, initial encounter; Z46.89 Encounter for fitting and adjustment of other specified devices; S52.592D Other fractures of lower end of left radius, subsequent encounter for closed fracture with routine healing; X58.XXXD Exposure to other specified factors, subsequent encounter | CPT/HCPCS: 73110; 97760; L3982 ==

== ENCOUNTER 2021-04-18 11:31 | Outpatient (CLI) | payer MEDICARE, MEDICAID, SELFPAY | END 2021-04-18 11:32 | disposition home or self-care (01) | LOC: SPT 11:32 | PROVIDERS: Family Provider Nurse Practitioner Family; PCP Nurse Practitioner Family; Visit Provider Physician Assistant | DX: Z46.89 Encounter for fitting and adjustment of other specified devices (principal); S52.592D Other fractures of lower end of left radius, subsequent encounter for closed fracture with routine healing; X58.XXXD Exposure to other specified factors, subsequent encounter | CPT/HCPCS: 97760; L3982 ==

== ENCOUNTER → 2021-04-19 09:42 | Outpatient (BNVA) | payer MEDICARE, MEDICAID, SELFPAY | PROVIDERS: Family Provider Nurse Practitioner Family; PCP Nurse Practitioner Family; Visit Provider Psychiatry & Neurology Psychiatry | DX: F41.9 Anxiety disorder, unspecified (principal); F32.9 Major depressive disorder, single episode, unspecified; S52.502A Unspecified fracture of the lower end of left radius, initial encounter for closed fracture | CPT/HCPCS: 99214 ==

== ENCOUNTER → 2021-05-02 09:51 | Outpatient (BNVA) | payer MEDICARE, MEDICAID, SELFPAY | PROVIDERS: Family Provider Nurse Practitioner Family; PCP Nurse Practitioner Family; Visit Provider Physician Assistant | DX: S52.502A Unspecified fracture of the lower end of left radius, initial encounter for closed fracture (principal); X58.XXXA Exposure to other specified factors, initial encounter | CPT/HCPCS: 73110 ==

== ENCOUNTER → 2021-05-23 10:22 | Outpatient (BNVA) | payer MEDICARE, MEDICAID, SELFPAY | PROVIDERS: Family Provider Nurse Practitioner Family; PCP Nurse Practitioner Family; Visit Provider Physician Assistant | DX: S52.502D Unspecified fracture of the lower end of left radius, subsequent encounter for closed fracture with routine healing (principal); X58.XXXD Exposure to other specified factors, subsequent encounter; Z46.89 Encounter for fitting and adjustment of other specified devices; S52.592D Other fractures of lower end of left radius, subsequent encounter for closed fracture with routine healing | CPT/HCPCS: 73110; 97760; L3908 ==

== ENCOUNTER 2021-05-23 15:37 | Outpatient (CLI) | payer MEDICARE, MEDICAID, SELFPAY | END 2021-05-23 15:38 | disposition home or self-care (01) | LOC: SPT 15:39 | PROVIDERS: Family Provider Nurse Practitioner Family; PCP Nurse Practitioner Family; Visit Provider Physician Assistant | DX: Z46.89 Encounter for fitting and adjustment of other specified devices (principal); S52.592D Other fractures of lower end of left radius, subsequent encounter for closed fracture with routine healing; X58.XXXD Exposure to other specified factors, subsequent encounter | CPT/HCPCS: 97760; L3908 ==

== ENCOUNTER → 2021-07-26 10:27 | Outpatient (BNVA) | payer MEDICARE, MEDICAID, SELFPAY | PROVIDERS: Family Provider Nurse Practitioner Family; PCP Nurse Practitioner Family; Visit Provider Psychiatry & Neurology Psychiatry | DX: F41.9 Anxiety disorder, unspecified (principal); F32.9 Major depressive disorder, single episode, unspecified; S52.502A Unspecified fracture of the lower end of left radius, initial encounter for closed fracture | CPT/HCPCS: 99214 ==

== ENCOUNTER → 2021-11-13 13:27 | Outpatient (BNVA) | payer MEDICARE, MEDICAID, SELFPAY | PROVIDERS: Family Provider Nurse Practitioner Family; PCP Nurse Practitioner Family; Visit Provider Internal Medicine | DX: I48.0 Paroxysmal atrial fibrillation (principal); E78.5 Hyperlipidemia, unspecified; I34.0 Nonrheumatic mitral (valve) insufficiency; J44.9 Chronic obstructive pulmonary disease, unspecified; M79.89 Other specified soft tissue disorders | CPT/HCPCS: 99214 ==

== ENCOUNTER 2021-11-15 10:48 | Emergency (ER) | payer MEDICARE, MEDICAID, SELFPAY ==
[2021-11-15 10:53] VITALS: BP 136/96; PULSE 96; RESP 18; O2SAT 98
--- NOTE | 2021-11-15 10:53 | ECG_ITS ---
[facility] Test Date: 2021-11-15 Pat Name: Francy Toro Department: Room: Gender: Female Slab Worker: : 1940 Requested By: Santos Pulido Order Number: [id number] Marcelina MD: Billy Kaplan M.D. Measurements Intervals [place] Rate: 97 P: 25 MI: 181 QRS: -12 QRSD: 111 T: 86 QT: 353 QTc: 450 Interpretive Statements SINUS RHYTHM LEFT VENTRICULAR HYPERTROPHY AND ST-T CHANGE [VOLTAGE CRITERIA PLUS ST/T ABNORMALITY] Poor R wave progression Compared to ECG 07/12/2019 10:16:54 Left ventricular hypertrophy now present ST (T wave) deviation now present Sinus tachycardia no longer present T-wave abnormality no longer present Electronically Signed On 11-15-2021 18:23:22 CDT by Billy Kaplan M.D. [email or web address]
[2021-11-15 10:58] VITALS: BP 154/77; PULSE 100; RESP 16; TEMP 36.4; O2SAT 94; BMI 28.1
--- NOTE | 2021-11-15 11:21 | ED.C_ITS ---
HPI - Psych General: Chief Complaint: Psychiatric Symptoms Stated Complaint: AGUEDA PSYCH EVAL Time Seen by Provider: 11/15/21 10:55 History of Present Illness: Patient is brought in from the long-term with concerns for increased aggression and suicidal ideation. Patient is a history of dementia and is recently been becoming more aggressive. Per staff she is making threats to kill her self with her scissors. They have removed her scissors, and she continues to ask for them. Upon arrival here the patient is cooperative. She is alert and oriented x3. She states that she has no intention of hurting herself or others. I tried to talk to her about her threats and explained that that is why they are concerned, but she keeps repeating that she would not hurt anybody else. Review of Systems Const: Denies: fever(s) or body aches Eyes: Denies: change in vision or blurry vision ENMT: Denies: throat pain or odynophagia Card: Denies: chest pain or palpitations Resp: Denies: dyspnea or productive cough GI: Denies: abdominal pain, nausea or vomiting : Denies: flank pain or dysuria Musc: Denies: neck pain or back pain Skin/Breast: Denies: rash or pruritus Neuro: Denies: headache(s) or numbness in extremities Psych: Reports: other (Denies suicidal or homicidal ideation); Denies: anxiety or change in appetite Endo: Denies: polyuria or excessive sweating PFS ED PFSH: Medical History Anxiety Anxiety Arthritis COPD (chronic obstructive pulmonary disease) Dementia Depression Diverticulosis Gastritis Hip fracture Hyperlipidemia Mitral regurgitation Paroxysmal atrial fibrillation Psychiatric care Sinus tachycardia Surgical History History of ankle surgery History of back surgery History of colonoscopy (~03/2019) History of esophagogastroduodenoscopy (EGD) (~03/2019) History of left hip replacement (~03/2019) Hx of breast biopsy Hx of enucleation of left eyeball Hx of hysterectomy Family History Father CAD (coronary artery disease) Mother CAD (coronary artery disease) Brother Diabetes Lung disease Denies family history of Clotting disorder Dementia Chronic kidney disease (CKD) Suicide Anesthesia complication Bleeding disorder Cancer Stroke Social History Smoking and tobacco status: never smoked Second hand smoke exposure: No Alcohol intake: never Adopted: No Caregiver/support person: Yes Lives independently: No (LIVES IN [facility] ) Housing: [facility] Marital status: / service: No Current occupational status: retired Current occupational exposures/hazards: No Pets and animals: No History of recent travel: No Current gender identity: Female Peg/Zoroastrian: Bahai Special peg needs: No Agree to transfusion: No Financial difficulty paying for basics: Decline to Answer Physical Exam Const: COMMON NORMALS: no acute distress, patient oriented x3, healthy appearing and alert HENMT: COMMON NORMALS: normocephalic and atraumatic HEAD & SCALP: normocephalic and atraumatic Eye: COMMON NORMALS: Equal, round and reactive pupils present and EOMs intact bilaterally PUPIL: Yes Equal, round and reactive pupils present Neck/C-Spine: COMMON NORMALS: full ROM and supple Resp: COMMON NORMALS: normal respiratory effort, No retractions and No use of accessory muscles Cardio: COMMON NORMALS: regular rate and regular rhythm RATE: regular rate RHYTHM: regular rhythm GI: COMMON NORMALS: Normal to inspection, nondistended, normoactive bowel sounds present, Soft to palpation and non-tender PALPATION: Yes Soft to palpation Back/Pelvis: COMMON NORMALS: thoracic and lumbar spine normal to inspection and no thoracic nor lumbar tenderness Extremity: COMMON NORMALS: normal to inspection and full ROM Neuro: COMMON NORMALS: patient oriented x3 SENSORIUM/ORIENTATION: Yes alert Psych: COMMON NORMALS: mental status grossly normal and cooperative Skin: COMMON NORMALS: no rashes or lesions noted and no wounds GENERAL SKIN EXAM: no rashes or lesions noted Course Vital Signs: Vital signs: Vital Signs Temperature 97.5 F L 11/15/21 10:58 Pulse Rate 100 11/15/21 10:58 Respiratory Rate 16 11/15/21 10:58 Blood Pressure 135/86 11/15/21 13:17 Pulse Oximetry 99 11/15/21 13:17 Oxygen Delivery Me thod 11/15/21 10:53 MDM - Psych Medical Decision Making Patient is brought in from the long-term with concerns for increased aggression and suicidal ideation. Patient is a history of dementia and is recently been becoming more aggressive. Per staff she is making threats to kill her self with her scissors. They have removed her scissors, and she continues to ask for them. Upon arrival here the patient is cooperative. She is alert and oriented x3. She states that she has no intention of hurting herself or others. I tried to talk to her about her threats and explained that that is why they are concerned, but she keeps repeating that she would not hurt anybody else. Physical exam is otherwise unremarkable. Will consult psych, and reassess. Dr. Paige with psychiatry has seen and evaluated the patient, and agree she is stable for discharge back to the nursing facility. Will discharge at this time. Lab Data : 11/15/21 11:55 11/15/21 11:55 Radiology Impressions Chest X-Ray 11/15/21 11:27 IMPRESSION: No acute abnormality identified. Head CT 11/15/21 11:27 IMPRESSION: 1. No acute intracranial hemorrhage or edema. 2. Mild atrophy with moderate small vessel ischemic type changes. Similar to 07/12/2019. Laboratory Results WBC 7.0 10^3/uL (4.0-10.0) 11/15/21 11:55 RBC 4.03 10^6/uL (4.1-5.3) L 11/15/21 11:55 Hgb 11.3 g/dL (11.5-15.3) L 11/15/21 11:55 Hct 36.1 % (37.0-47.0) L 11/15/21 11:55 MCV 89.6 fl (81-99) 11/15/21 11:55 MCH 28.0 pg (28.0-34.0) 11/15/21 11:55 MCHC 31.3 g/dL (30.0-36.0) 11/15/21 11:55 RDW 15.9 % (12.1-15.1) H 11/15/21 11:55 Plt Count 229 10^3/cmm (130-400) 11/15/21 11:55 MPV 9.6 fL (7.4-10.4) 11/15/21 11:55 Neut % (Auto) 70.2 % 11/15/21 11:55 Lymph % (Auto) 12.6 % 11/15/21 11:55 [place] % (Auto) 10.7 % 11/15/21 11:55 Eos % (Auto) 5.0 % 11/15/21 11:55 Baso % (Auto) 0.6 % 11/15/21 11:55 Neut # (Auto) 4.91 10^3/uL (1.8-7.7) 11/15/21 11:55 Lymph # (Auto) 0.9 10^3/uL (0.8-4.8) 11/15/21 11:55 [place]cock # (Auto) 0.8 10^3/uL (0.2-0.9) 11/15/21 11:55 Eos # (Auto) 0.4 10^3/uL (0.0-0.8) 11/15/21 11:55 Baso # (Auto) 0.0 10^3/uL (0.0-0.1) 11/15/21 11:55 Nucleated RBC % (auto) 0 % 11/15/21 11:55 Nucleated RBCs # 0.0 /100WBC 11/15/21 11:55 Sodium 143 mmol/L (136-145) 11/15/21 11:55 Potassium 4.0 mmol/L (3.5-5.1) 11/15/21 11:55 Chloride 108 mmol/L (98-107) H 11/15/21 11:55 Carbon Dioxide 24 mmol/L (22-29) 11/15/21 11:55 Anion Gap 15.0 (5-19) 11/15/21 11:55 BUN 18 mg/dL (8-23) 11/15/21 11:55 Creatinine 0.8 mg/dL (0.5-0.9) 11/15/21 11:55 GFR Calculation Not Reportable 11/15/21 11:55 Glucose 118 mg/dL (65-115) H 11/15/21 11:55 Calculated Osmolality 299 mOsm/kg (285-295) H 11/15/21 11:55 Calcium 9.1 mg/dL (8.5-10.5) 11/15/21 11:55 Total Bilirubin 0.2 mg/dL (0.15-1.2) 11/15/21 11:55 AST 13 U/L (0-32) 11/15/21 11:55 ALT 10 U/L (0-33) 11/15/21 11:55 Alkaline Phosphatase 107 IU/L (35-105) H 11/15/21 11:55 Total Protein 7.0 g/dL (6.6-8.7) 11/15/21 11:55 Albumin 3.8 g/dL (3.5-5.2) 11/15/21 11:55 Globulin 3.2 g/dL (1.3-4.6) 11/15/21 11:55 TSH 1.18 uIU/mL (0.27-4.20) 11/15/21 11:55 Urine Color Yellow (Yellow) 11/15/21 13:31 Urine Appearance Clear (CLEAR) 11/15/21 13:31 Urine pH 5 (5-7) 11/15/21 13:31 Ur Specific [place] 1.020 (1.005-1.030) 11/15/21 13:31 Urine Protein Neg (Negative) 11/15/21 13:31 Urine Glucose (UA) Norm (Normal) 11/15/21 13:31 Urine Ketones Negative (Negative) 11/15/21 13:31 Urine Blood Neg (Negative) 11/15/21 13:31 Urine Nitrate Negative (Negative) 11/15/21 13:31 Urine Bilirubin Neg (Negative) 11/15/21 13:31 Urine Urobilinogen Norm mg/dL (Negative) 11/15/21 13:31 Ur Leukocyte Esterase 1+ (Negative) H 11/15/21 13:31 Urine RBC 0-4 /hpf (0-2) H 11/15/21 13:31 Urine WBC 5-10 /hpf (0-5) H 11/15/21 13:31 Ur Squamous Epith Cells 0-4 /hpf (0-5) H 11/15/21 13:31 Amorphous Sediment Not Reportable 11/15/21 13:31 Urine Bacteria None /hpf (NONE) 11/15/21 13:31 Salicylates 0.5 mg/dL (3-10) L 11/15/21 11:55 Urine Opiates Screen Negative ng/mL (Negative) 11/15/21 13:31 Acetaminophen < 5.0 ug/mL (10-30) L 11/15/21 11:55 Ur Barbiturates Screen Negative ng/mL (Negative) 11/15/21 13:31 Ur Phencyclidine Scrn Negative ng/mL (Negative) 11/15/21 13:31 Ur Amphetamines Screen Negative ng/mL (Negative) 11/15/21 13:31 U Benzodiazepines Scrn Positive ng/mL (Negative) H 11/15/21 13:31 Urine Cocaine Screen Negative ng/mL (Negative) 11/15/21 13:31 U Marijuana (THC) Screen Negative ng/mL (Negative) 11/15/21 13:31 Ethyl Alcohol < 10 mg/dL (0-10) 11/15/21 11:55 SARS-CoV-2 Ag (Rapid) Negative (Negative) 11/15/21 11:07 Discharge Plan Discharge Patient Disposition: Home Clinical Impression: Aggressive outburst Condition: Stable Prescriptions: No Action Fleet Bisacodyl 10 mg/30 mL enema 10 mg IN DAILY PRN acetaminophen [Tylenol] 325 mg capsule 325 mg PO QID PRN triamcinolone acetonide 0.1 % ointment 1 applic topical BID Qty: 454 2RF Rx Instructions: Apply to affected area no more than 2 weeks per month. Not for face ammonium lactate 12 % cream 1 applic topical DAILY Qty: 385 6RF Rx Instructions: Apply neck down daily (DME) Fast form ulnar gutter See Rx Instructions .Route .MEDSUPPLY Qty: 1 0RF Rx Instructions: As directed metoprolol tartrate 25 mg tablet 12.5 mg PO DAILY citalopram 10 mg tablet 40 mg PO DAILY (DME) Cock up splint See Rx Instructions .Route .MEDSUPPLY Qty: 1 0RF Rx Instructions: As directed diphenhydramine HCl [Banophen] 25 mg capsule 25 mg PO .q12 PRN PreserVision AREDS [id number] capsule 1 cap PO BID clobetasol 0.05 % solution 1 applic topical DAILY Qty: 50 3RF Rx Instructions: Apply a few drops to itchy areas on scalp as needed pravastatin 40 mg tablet 40 mg PO BEDTIME gabapentin 300 mg capsule 300 mg PO TID diltiazem HCl 120 mg capsule,extended release 24hr 120 mg PO DAILY albuterol sulfate [ProAir HFA] 90 mcg/actuation HFA aerosol inhaler 2 puff INHALATION Q4H PRN (Reason: Shortness Of Breath) topiramate 25 mg Tablet 25 mg PO DAILY pantoprazole 40 mg Tablet,Delayed Release (Dr/Ec) 40 mg PO DAILY ropinirole 0.5 mg Tablet 0.5 mg PO BEDTIME Symbicort 160-4.5 mcg/actuation Hfa Aerosol Inhaler 2 puff INHALATION BID Qty: 0 0RF tizanidine 4 mg capsule 4 mg PO TID PRN (Reason: Muscle Spasm) alprazolam 0.25 mg tablet 0.125 mg PO BID PRN (Reason: Anxiety) Label Comments: pt not taking Discharge Orders: Discharge ED (Routine); Ordered 11/15/21 Ordered By: Liborio Toro Referrals: Vigil,SHAD EllisP [Primary Care Provider] - Coding Level of Care Code ED 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
--- NOTE | 2021-11-15 11:27 | XR_ITS ---
WS: [id number] XR chest 1V portable [id number] REASON FOR EXAM: sob FINDINGS: Chest is similar to previous examination of 07/15/2019 with interval healing of right rib ab normalities. Moderate tortuosity and ectasia of the thoracic aorta. Mild cardiomegaly. Calcified granulomatous disease in both hemithoraces. No definite acute pulmonary parenchymal or pleural abnormality is identified. Severe, presumed posttraumatic arthropathy of the right shoulder joint. Old healed rib fractures bila terally. Moderate degenerative spondylosis in the mid and lower thoracic spine. XR/XR chest 1V portable [id number] IMPRESSION: No acute abnormality identified.
--- NOTE | 2021-11-15 11:27 | CT_ITS ---
WS: [id number] CT HEAD NONCONTRAST HISTORY: ams TECHNIQUE: Contiguous axial imaging performed through the brain in 2.5 mm imaging. Bone and soft tiss ue windows. Sagittal and coronal reformats reviewed. All CT scans at [facility] use at least one of these dose optimization techniques: automated exposure control; mA and/or kV adjustment per pa tient size (includes targeted exams where dose is matched to clinical indication); or iterative recon struction. DLP: 1107.68 mGy.cm COMPARISON: 07/12/2019 No acute intracranial hemorrhage, midline shift or mass effect. Mild atrophy and moderate small vessel ischemic type changes throughout the white matter. Small lacun ar infarct in the RIGHT basal ganglia. Ventricles: Normal size with no hydrocephalus. No inferior displacement of cerebellar tonsils. Paranasal sinuses: As visualized are clear. Mastoid air cells: Well pneumatized. Calvarium and scalp: Skull is intact with no soft tissue edema or swelling. LEFT prosthetic globe. CT/CT head wo con* [id number] IMPRESSION: 1. No acute intracranial hemorrhage or edema. 2. Mild atrophy with moderate small vessel ischemic type changes. Similar to .
[2021-11-15 11:46] LABS: SARS Covid-2 Antigen Negative (Negative)
[2021-11-15 12:02] LABS: Basophils % 0.6 %; Eosinophils # 0.4 10^3/uL (0.0-0.8); Hematocrit 36.1 % (37.0-47.0); Hemoglobin 11.3 g/dL (11.5-15.3); Lymphocytes # 0.9 10^3/uL (0.8-4.8); Lymphocytes % 12.6 %; Mean Corpuscular HGB Conc 31.3 g/dL (30.0-36.0); Mean Corpuscular Volume 89.6 fl (81-99); Mean Platelet Volume 9.6 fL (7.4-10.4); Monocytes # 0.8 10^3/uL (0.2-0.9); Monocytes % 10.7 %; Neutrophils # 4.91 10^3/uL (1.8-7.7); Neutrophils % 70.2 %; Nucleated Red Blood Cells % 0 %; Platelet Count 229 10^3/cmm (130-400); Red Blood Count 4.03 10^6/uL (4.1-5.3); Red Cell Distribution Width 15.9 % (12.1-15.1)
[2021-11-15 12:38] LABS: Alanine Aminotransferase 10 U/L (0-33); Albumin Level 3.8 g/dL (3.5-5.2); Alkaline Phosphatase 107 IU/L (35-105); Aspartate Amino Transferase 13 U/L (0-32); Blood Urea Nitrogen 18 mg/dL (8-23); Calcium 9.1 mg/dL (8.5-10.5); Carbon Dioxide 24 mmol/L (22-29); Chloride 108 mmol/L (98-107); Globulin 3.2 g/dL (1.3-4.6); Glucose 118 mg/dL (65-115); Osmolality Calculated 299 mOsm/kg (285-295); Salicylate 0.5 mg/dL (3-10); Sodium 143 mmol/L (136-145); Thyroid Stimulating Hormone 1.18 uIU/mL (0.27-4.20); Total Bilirubin 0.2 mg/dL (0.15-1.2)
[2021-11-15 12:39] LABS: Acetaminophen < 5.0 ug/mL (10-30); Alcohol Level < 10 mg/dL (0-10)
[2021-11-15 13:17] VITALS: BP 135/86; O2SAT 99
--- NOTE | 2021-11-15 13:42 | PC.NURSE ---
PT LEFT IN HER CLOTHING WITH PERMISSION FROM DR. VIEYRA.
[2021-11-15 13:47] LABS: Bilirubin Urine Neg (Negative); Blood Urine Neg (Negative); Glucose Urine UA Norm (Normal); Ketones Urine Negative (Negative); Nitrate Urine Negative (Negative); Protein Urine Neg (Negative); Urine Appearance Clear (CLEAR); Urine Color Yellow (Yellow); pH Urine 5 (5-7)
[2021-11-15 13:48] LABS: Add Urine Microscopic? YES; Leukocyte Esterase Urine 1+ (Negative); Urobilinogen Urine Norm (Negative)
[2021-11-15 13:52] LABS: RBC Urine 0-4 /hpf (0-2); Squamous Epithelial Cell Urine 0-4 /hpf (0-5)
[2021-11-15 13:53] LABS: Add Urine Culture? No
[2021-11-15 13:56] LABS: Amphetamines Screen Urine Negative (Negative); Barbiturates Screen Urine Negative (Negative); Benzodiazepines Screen Urine Positive (Negative); Cocaine Screen Urine Negative (Negative); Opiate Screen Urine Negative (Negative); PCP Screen Urine Negative (Negative); THC Screen Urine Negative (Negative)
== END 2021-11-15 20:11 | disposition home or self-care (01) ==
PROVIDERS: Emergency Medicine; Emergency Provider Emergency Medicine; PCP Nurse Practitioner Family
DX: R45.6 Violent behavior (principal); J44.9 Chronic obstructive pulmonary disease, unspecified; F03.90 Unspecified dementia, unspecified severity, without behavioral disturbance, psychotic disturbance, mood disturbance, and anxiety; E78.5 Hyperlipidemia, unspecified
CPT/HCPCS: 36415; 70450; 71045; 80053; 80306; 80307; 81001; 84443; 85025; 87426; 93005; 99285

== ENCOUNTER 2022-02-11 14:52 | Emergency (ER) | payer MEDICARE, MEDICAID, SELFPAY ==
[2022-02-11] VITALS (30 sets, daily range): BP systolic 122–185; BP diastolic 54–86; PULSE 80–96; RESP 18; O2SAT 92–99
--- NOTE | 2022-02-11 14:54 | W.ED.AMS ---
HPI - Altered Mental Status General: Chief Complaint: General Medical Stated Complaint: AMS Time Seen by Provider: 02/11/22 14:54 History of Present Illness: Ms. Toro is an 81-year-old lady with history of hypertension, hyperlipidemia, valvular heart disease, dementia, COPD presenting to the emergency department from half-way by EMS for questionable altered mental status. Apparently EMS was activated as the patient had altered mental status, low blood pressure, and hypoxemia on room air however upon EMS arrival and my evaluation patient she is oxygenating adequately though tachypneic, oriented, no focal neurologic deficits or neuro complaints. She does endorse approximately 2-week history of right flank abdominal and lower chest pain after fall which has persisted. Mild associated diarrhea. Intensity of symptoms moderate. No other specific changes in health, exacerbating, or alleviating factors identified. Onset (ago): week(s) Severity: moderate Associated symptoms: Reports other Review of Systems General: Reports: 10 or more systems reviewed and unremarkable except in HPI and below PFSH ED PFSH: Medical History Anxiety Anxiety Arthritis COPD (chronic obstructive pulmonary disease) Dementia Depression Diverticulosis Gastritis Hip fracture Hyperlipidemia Mitral regurgitation Paroxysmal atrial fibrillation Psychiatric care Sinus tachycardia Surgical History History of ankle surgery History of back surgery History of colonoscopy (~03/2019) History of esophagogastroduodenoscopy (EGD) (~03/2019) History of left hip replacement (~03/2019) Hx of breast biopsy Hx of enucleation of left eyeball Hx of hysterectomy Family History Father CAD (coronary artery disease) Mother CAD (coronary artery disease) Brother Diabetes Lung disease Denies family history of Clotting disorder Dementia Chronic kidney disease (CKD) Suicide Anesthesia complication Bleeding disorder Cancer Stroke Social History Smoking and tobacco status: never smoked Second hand smoke exposure: No Alcohol intake: never Adopted: No Caregiver/support person: Yes Lives independently: No (LIVES IN ASSISTED ) Housing: Assisted Marital status: / service: No Current occupational status: retired Current occupational exposures/hazards: No Pets and animals: No History of recent travel: No Current gender identity: Female Peg/Amish: Buddhism Special peg needs: No Agree to transfusion: No Financial difficulty paying for basics: Decline to Answer Physical Exam Const: COMMON NORMALS: alert GENERAL APPEARANCE: cooperative, well developed and ill appearing (Mildly) HENMT: COMMON NORMALS: normocephalic and atraumatic HEAD & SCALP: normocephalic and atraumatic THROAT: posterior oropharynx normal Eye: COMMON NORMALS: conjunctivae normal CONJUNCTIVA: Yes conjunctivae normal SCLERA: sclerae normal Neck/C-Spine: COMMON NORMALS: supple GENERAL: Yes trachea midline Resp: COMMON NORMALS: clear to auscultation bilaterally EFFORT & INSPECTION: Yes able to speak in complete sentences AUSCULTATION: clear to auscultation bilaterally Cardio: COMMON NORMALS: regular rhythm RATE: tachycardic RHYTHM: regular rhythm GI: COMMON NORMALS: Soft to palpation PALPATION: Yes Soft to palpation, Yes Tenderness to palpation present (GI), No Guarding due to palpation present (GI) and No Rigid due to palpation Extremity: GENERAL: Yes normal exam except as noted and No edema Neuro: COMMON NORMALS: moves all extremities SENSORIUM/ORIENTATION: Yes alert and No Orientation impaired Psych: COMMON NORMALS: mental status grossly normal and Normal thought process present THOUGHT PROCESS: Normal thought process present Course Vital Signs: Vital signs: Vital Signs Pulse Rate 96 02/11/22 20:08 Respiratory Rate 18 02/11/22 20:08 Blood Pressure 174/76 02/11/22 20:08 Pulse Oximetry 94 02/11/22 20:08 Oxygen Delivery Me thod 02/11/22 14:53 MDM - Altered Mental Status Medical Decision Making 81-year-old female presenting with altered mental status and generalized medical concerns though improved upon EMS initial contact. Exam as above. No focal neurologic deficits. EKG shows sinus rhythm with nonspecific ST segment abnormalities, no STEMI. Labs notable for no leukocytosis, near baseline normocytic anemia. Metabolic panel without significant derangement requiring acute intervention. 2 hour delta troponin is negative. Urinalysis concerning for UTI. CT head negative for acute pathology. Additional CTs with acute appearing rib fractures and other chronic findings which were discussed with the patient. Patient reports last fall was probably 2 weeks ago. Antibiotic ordered for UTI. Mostly because of symptoms is subacute rib fractures and urinary tract infection. Plan to discharge with incentive spirometer. The results of ED evaluation were discussed with the patient including prescriptions and/or symptomatic cares (if applicable) including appropriate and responsible use, followup plan, and return precautions. The patient verbalized understanding and felt safe for discharge. Medical Records I reviewed the patient's medical records. Lab Data I reviewed the patient's lab results. : 02/11/22 15:25 02/11/22 15:25 Radiology Impressions Chest/Abdomen/Pelvis CT 02/11/22 15:06 IMPRESSION: 1. Limited exam due to patient respiratory motion. 2. No gross evidence of pulmonary embolism 3. Pleural effusion 4. Right lower lobe atelectasis 5. Old granulomatous disease 6. Recent right rib fractures as described. IMPRESSION: 1. 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 No follow-up imaging is recommended for these lesions per consensus recommendations based on imaging criteria. Head CT 02/11/22 15: IMPRESSION: 1. No acute intracranial abnormality. 2. Moderate diffuse cerebral atrophy and sequela of chronic small vessel ischemic disease. Laboratory Results WBC 8.5 10^3/uL (4.0-10.0) 02/11/22 15:25 RBC 3.91 10^6/uL (4.1-5.3) L 02/11/22 15:25 Hgb 11.3 g/dL (11.5-15.3) L 02/11/22 15:25 Hct 36.0 % (37.0-47.0) L 02/11/22 15:25 MCV 92.1 fl (81-99) 02/11/22 15:25 MCH 28.9 pg (28.0-34.0) 02/11/22 15:25 MCHC 31.4 g/dL (30.0-36.0) 02/11/22 15:25 RDW 14.2 % (12.1-15.1) 02/11/22 15:25 Plt Count 231 10^3/cmm (130-400) 02/11/22 15:25 MPV 9.8 fL (7.4-10.4) 02/11/22 15:25 Neut % (Auto) 72.9 % 02/11/22 15:25 Lymph % (Auto) 11.9 % 02/11/22 15:25 [place] % (Auto) 9.8 % 02/11/22 15:25 Eos % (Auto) 4.0 % 02/11/22 15:25 Baso % (Auto) 0.6 % 02/11/22 15:25 Neut # (Auto) 6.18 10^3/uL (1.8-7.7) 02/11/22 15:25 Lymph # (Auto) 1.0 10^3/uL (0.8-4.8) 02/11/22 15:25 [place] # (Auto) 0.8 10^3/uL (0.2-0.9) 02/11/22 15:25 Eos # (Auto) 0.3 10^3/uL (0.0-0.8) 02/11/22 15:25 Baso # (Auto) 0.1 10^3/uL (0.0-0.1) 02/11/22 15:25 Nucleated RBC % (auto) 0 % 02/11/22 15:25 Nucleated RBCs # 0.0 /100WBC 02/11/22 15:25 Sodium 141 mmol/L (136-145) 02/11/22 15:25 Potassium 4.4 mmol/L (3.5-5.1) 02/11/22 15:25 Chloride 105 mmol/L (98-107) 02/11/22 15:25 Carbon Dioxide 23 mmol/L (22-29) 02/11/22 15:25 Anion Gap 17.4 (5-19) 02/11/22 15:25 BUN 38 mg/dL (8-23) H 02/11/22 15:25 Creatinine 1.1 mg/dL (0.5-0.9) H 02/11/22 15:25 GFR Calculation Not Reportable 02/11/22 15:25 Glucose 128 mg/dL (65-115) H 02/11/22 15:25 Calculated Osmolality 303 mOsm/kg (285-295) H 02/11/22 15:25 Calcium 9.3 mg/dL (8.5-10.5) 02/11/22 15:25 Total Bilirubin 0.2 mg/dL (0.15-1.2) 02/11/22 15:25 AST 13 U/L (0-32) 02/11/22 15:25 ALT 11 U/L (0-33) 02/11/22 15:25 Alkaline Phosphatase 105 U/L (35-105) 02/11/22 15:25 Troponin T Baseline 23 ng/L (0-10) H 02/11/22 15:25 Troponin T 120 Minute 21.08 ng/L (0-10) H 02/11/22 17:45 Delta Troponin T -1.92 ABS# (0-10) L 02/11/22 17:45 NT-Pro-B Natriuret Pep 506 pg/mL (0-450) H 02/11/22 15:25 Total Protein 7.7 g/dL (6.6-8.7) 02/11/22 15:25 Albumin 4.0 g/dL (3.5-5.2) 02/11/22 15:25 Globulin 3.7 g/dL (1.3-4.6) 02/11/22 15:25 Procalcitonin 0.09 ng/mL (0-0.5) 02/11/22 15:25 TSH 0.99 uIU/mL (0.27-4.20) 02/11/22 15:25 Urine Color Yellow (Yellow) 02/11/22 16:44 Urine Appearance Clear (CLEAR) 02/11/22 16:44 Urine pH 5 (5-7) 02/11/22 16:44 Ur Specific [place] 1.015 (1.005-1.030) 02/11/22 16:44 Urine Protein Neg (Negative) 02/11/22 16:44 Urine Glucose (UA) Norm (Normal) 02/11/22 16:44 Urine Ketones Negative (Negative) 02/11/22 16:44 Urine Blood Neg (Negative) 02/11/22 16:44 Urine Nitrate Negative (Negative) 02/11/22 16:44 Urine Bilirubin Neg (Negative) 02/11/22 16:44 Urine Urobilinogen Norm mg/dL (Negative) 02/11/22 16:44 Ur Leukocyte Esterase 1+ (Negative) H 02/11/22 16:44 Urine RBC 0-4 /hpf (0-2) H 02/11/22 16:44 Urine WBC >100 /hpf (0-5) H 02/11/22 16:44 Ur Squamous Epith Cells 0-4 /hpf (0-5) H 02/11/22 16:44 Ur Transition Epith Cell 0-4 /hpf 02/11/22 16:44 Amorphous Sediment Not Reportable 02/11/22 16:44 Urine Bacteria 1+ /hpf (NONE) H 02/11/22 16:44 Discharge Plan Discharge Patient Disposition: Home Clinical Impression: Acute cystitis, Falls frequently, Fracture, ribs, Anemia, Pleural effusion Condition: Stable Prescriptions: New ciprofloxacin HCl 500 mg tablet 500 mg PO BID Qty: 20 0RF No Action Fleet Bisacodyl 10 mg/30 mL enema 10 mg WI DAILY PRN (Reason: Constipation) acetaminophen [Tylenol] 325 mg capsule 650 mg PO Q4H PRN (Reason: Pain) ammonium lactate 12 % cream 1 applic topical DAILY Qty: 385 6RF Rx Instructions: Apply neck down daily (DME) Fast form ulnar gutter See Rx Instructions .Route .MEDSUPPLY Qty: 1 0RF Rx Instructions: As directed metoprolol tartrate 25 mg tablet 12.5 mg PO DAILY citalopram 10 mg tablet 40 mg PO DAILY (DME) Cock up splint See Rx Instructions .Route .MEDSUPPLY Qty: 1 0RF Rx Instructions: As directed diphenhydramine HCl [Banophen] 25 mg capsule 25 mg PO Q12H PRN (Reason: Itching) PreserVision AREDS [phone] [id number] capsule 1 cap PO BID aripiprazole [Abilify] 2 mg tablet 2 mg PO DAILY alprazolam 0.5 mg tablet 0.5 mg PO TID Aquaphor Ointment 1 applic topical BID Qty: 50 0RF Rx Instructions: apply to arms, legs and back twice daily pravastatin 40 mg tablet 40 mg PO BEDTIME gabapentin 300 mg capsule 300 mg PO TID diltiazem HCl 120 mg capsule,extended release 24hr 120 mg PO DAILY albuterol sulfate [ProAir HFA] 90 mcg/actuation HFA aerosol inhaler 2 puff INHALATION Q4H PRN (Reason: Shortness Of Breath) topiramate 25 mg Tablet 25 mg PO DAILY pantoprazole 40 mg Tablet,Delayed Release (Dr/Ec) 40 mg PO DAILY ropinirole 0.5 mg Tablet 0.5 mg PO DAILY tizanidine 4 mg capsule 4 mg PO TID PRN (Reason: Muscle Spasm) Imodium A-D 2 mg Tablet 2 mg PO Q6H PRN (Reason: Diarrhea) budesonide-formoterol 80-4.5 mcg/actuation Hfa Aerosol Inhaler 2 puff INHALATION BID Eucerin Cream 1 applic TOPICAL DAILY Biofreeze 0.2-3.5 % Gel 1 applic TOPICAL DAILY PRN (Reason: Pain) Rx Instructions: rub in gently and completely triamcinolone acetonide 0.1 % ointment 1 applic topical BID PRN (Reason: Itching) Rx Instructions: Apply to affected area no more than 2 weeks per month. Not for face clobetasol 0.05 % solution 1 applic topical DAILY PRN (Reason: Itching) Rx Instructions: Apply a few drops to itchy areas on scalp as needed Discharge Orders: Discharge ED (Routine); Ordered 02/11/22 Ordered By: Keith Ornelas Referrals: Rhonda Vigil FNP [Primary Care Provider] - Discharge Diet: Usual diet Discharge Activity: Increase activity as tolerated Patient Instructions: How to Use an Incentive Spirometer (ED), Rib Fracture (ED), Urinary Tract Infection in Older Adults (ED), Pain Management Activity Restrictions/Additional Instructions: Thank you for visiting the emergency department. You were seen evaluated for abdominal pain. The exact cause of your symptoms is unclear. You do have rib fractures from your prior fall. Additionally you have a urinary tract infection. I will treat the urinary tract infection with antibiotics. I will discharge you with a incentive spirometer. Please use this as instructed. Additionally you may use [id number] medications for pain however do not exceed the daily recommended dosage. Please follow-up with a primary care provider. Return to the emergency department for worsening symptoms or anything else that you are concerned about a feel needs emergency department evaluation. Coding Level of Care Code ED Table Games Dealer for Jone Fwnicolette Exam Comprehensive
--- NOTE | 2022-02-11 15:06 | CTR_ITS ---
PROCEDURE INFORMATION: Exam: CT Head Without Contrast Exam date and time: 02/11/2022 5:11 PM Age: 81 years old Clinical indication: Altered mental status/memory loss; Age related cognitive decline; Prior surgery; Surgery date: 6+ months; Surgery type: Eye; Additional info: AMS episode TECHNIQUE: Imaging protocol: Computed tomography of the head without contrast. Radiation optimization: All CT scans at this facility use at least one of these dose optimization techniques: automated exposure control; mA and/or kV adjustment per patient size (includes targeted exams where dose is matched to clinical indication); or iterative reconstruction. COMPARISON: CT head wo con* [id number] 11/15/2021 11:33 AM RADIATION DOSE METRICS: Total DLP (mGy-cm): 1076.68 FINDINGS: Brain: No hemorrhage. No edema. Moderate diffuse cerebral atrophy and sequela of chronic small vessel ischemic disease. No mass effect. Cerebral ventricles: No ventriculomegaly. Paranasal sinuses: Visualized sinuses are unremarkable. No fluid levels. Mastoid air cells: Visualized mastoid air cells are well aerated. Orbital cavities: Left globe prosthesis noted. Bones/joints: Unremarkable. No acute fracture. Soft tissues: Unremarkable. CT/CT head wo con* [id number] IMPRESSION: 1. No acute intracranial abnormality. 2. Moderate diffuse cerebral atrophy and sequela of chronic small vessel ischemic disease.
--- NOTE | 2022-02-11 15:06 | CTR_ITS ---
PROCEDURE INFORMATION: Exam: CTA Chest With Contrast Exam date and time: 02/11/2022 5:17 PM Age: 81 years old Clinical indication: Abdominal pain; Generalized; Right-sided; Additional info: SOB, R rib/abd pain, diarrhea TECHNIQUE: Imaging protocol: Computed tomographic angiography of the chest with contrast. 3D rendering (Not supervised by radiologist): MIP and/or 3D reconstructed images were created by the technologist. Radiation optimization: All CT scans at this facility use at least one of these dose optimization techniques: automated exposure control; mA and/or kV adjustment per patient size (includes targeted exams where dose is matched to clinical indication); or iterative reconstruction. Contrast material: OMNI 350; Contrast volume: 100 ml; Contrast route: INTRAVENOUS (IV); COMPARISON: CT angio chest PE protcl [id number] 07/12/2019 5:46 AM RADIATION DOSE METRICS: Total DLP (mGy-cm): 1270.21 FINDINGS: Limitations: Study somewhat limited due to streak artifact created by the patient being scanned with the arms at the sides. Study is significantly limited by patient respiratory motion. Suboptimal/less than robust opacification the pulmonary arterial tree. Pulmonary arteries: Allowing for motion related artifacts there is no gross evidence of large or central pulmonary emboli. Aorta: Stable atherosclerotic calcifications. No aortic aneurysm. No aortic dissection. Lungs: There is chronic atelectasis in the right lower lobe similar to 07/12/2019. There is mild dependent atelectasis at the left lung base. Pleural spaces: There are small bilateral pleural effusions larger on the right. Right pleural effusion is partly loculated within the major fissure. Heart: There is severe atherosclerotic calcification of the coronary arteries. Lymph nodes: There are calcified hilar and mediastinal lymph nodes in keeping with old granulomatous disease. Bones/joints: There are multiple old healed right rib fractures. Acute fracture seen on 07/12/2019 have healed. There is a recent posterolateral right 9th rib fracture and also recent anterolateral right 7th and 8th rib fractures. Please correlate with the patient's clinical history. There are multiple healed posterior left rib fractures new compared with previous. Advanced degenerative changes in the right shoulder with chronic right scapular fractures are again identified. There is old healed fracture of the sternum. Chronic severe compression deformity of T5 again identified. The thoracic spine demonstrates moderate degenerative changes at multiple levels. Soft tissues: Unremarkable. PROCEDURE INFORMATION: Exam: CT Abdomen And Pelvis With Contrast Exam date and time: 02/11/2022 5:17 PM Age: 81 years old Clinical indication: Abdominal pain; Generalized; Right-sided; Additional info: SOB, R rib/abd pain, diarrhea TECHNIQUE: Imaging protocol: Computed tomography of the abdomen and pelvis with contrast. Radiation optimization: All CT scans at this facility use at least one of these dose optimization techniques: automated exposure control; mA and/or kV adjustment per patient size (includes targeted exams where dose is matched to clinical indication); or iterative reconstruction. Contrast material: OMNI 350; Contrast volume: 100 ml; Contrast route: INTRAVENOUS (IV); COMPARISON: CT abdomen pelvis wo con [id number] 07/13/2019 5:19 PM RADIATION DOSE METRICS: Total DLP (mGy-cm): 1270.21 FINDINGS: Limitations: Study somewhat limited due to streak artifact created by the patient being scanned with the arms at the sides. Liver: There is no focal abnormality within the liver. The common hepatic and splenic arteries fill via collaterals. There is a diffuse decrease in hepatic parenchymal density, consistent with moderate fatty infiltration. Gallbladder and bile ducts: The gallbladder is normal. Pancreas: The pancreas is normal. Spleen: The spleen demonstrates punctate calcifications, consistent with remote granulomatous organism exposure. Adrenal glands: The adrenal glands are normal. Kidneys and ureters: 3.5 cm simple benign cyst mid left kidney. The right kidney is normal. There is no evidence of hydronephrosis. There is no evidence of renal or ureteral calcifications. Stomach and bowel: There is no evidence of colitis/diverticulitis. There is no evidence of intestinal obstruction. Appendix: Not identified Intraperitoneal space: There is no evidence of free intraperitoneal fluid. Vasculature: The aorta demonstrates mild atherosclerotic calcification. There is no evidence of an abdominal aortic aneurysm. Occlusion of the proximal celiac artery again identified as described on CT chest 07/12/2019. Superior mesenteric artery Nathan patent. Lymph nodes: There is no evidence of lymphadenopathy. Urinary bladder: Unremarkable as visualized. Reproductive: There has been a hysterectomy. Bones/joints: There are old healed bilateral proximal femoral fracture status post internal fixation with metallic hardware. Multiple old healed pelvic fractures are identified. There is mild scoliosis of the lumbar spine concave to the right. The lumbar spine demonstrates marked degenerative changes at multiple levels. Degenerative and postsurgical changes in the lumbar spine are stable compared with 07/13/2019. Soft tissues: There is small umbilical hernia containing fat. CT/CT angio chest w abd pel w con IMPRESSION: 1. Limited exam due to patient respiratory motion. 2. No gross evidence of pulmonary embolism 3. Pleural effusion 4. Right lower lobe atelectasis 5. Old granulomatous disease 6. Recent right rib fractures as described. IMPRESSION: 1. 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 No follow-up imaging is recommended for these lesions per consensus recommendations based on imaging criteria.
[2022-02-11 15:37] LABS: Basophils # 0.1 10^3/uL (0.0-0.1); Basophils % 0.6 %; Eosinophils # 0.3 10^3/uL (0.0-0.8); Hemoglobin 11.3 g/dL (11.5-15.3); Lymphocytes % 11.9 %; Mean Corpuscular HGB Conc 31.4 g/dL (30.0-36.0); Mean Corpuscular Hemoglobin 28.9 pg (28.0-34.0); Mean Corpuscular Volume 92.1 fl (81-99); Mean Platelet Volume 9.8 fL (7.4-10.4); Monocytes # 0.8 10^3/uL (0.2-0.9); Monocytes % 9.8 %; Neutrophils # 6.18 10^3/uL (1.8-7.7); Neutrophils % 72.9 %; Nucleated Red Blood Cells % 0 %; Platelet Count 231 10^3/cmm (130-400); Red Blood Count 3.91 10^6/uL (4.1-5.3); Red Cell Distribution Width 14.2 % (12.1-15.1); White Blood Count 8.5 10^3/uL (4.0-10.0)
[2022-02-11 16:07] LABS: Troponin(5th) Baseline 23 ng/L (0-10)
[2022-02-11 16:17] LABS: NT Pro B Type Natriuretic Pept 506 pg/mL (0-450); Procalcitonin 0.09 ng/mL (0-0.5); Thyroid Stimulating Hormone 0.99 uIU/mL (0.27-4.20)
[2022-02-11 16:28] LABS: Alanine Aminotransferase 11 U/L (0-33); Alkaline Phosphatase 105 U/L (35-105); Anion Gap 17.4 (5-19); Aspartate Amino Transferase 13 U/L (0-32); Blood Urea Nitrogen 38 mg/dL (8-23); Calcium 9.3 mg/dL (8.5-10.5); Carbon Dioxide 23 mmol/L (22-29); Chloride 105 mmol/L (98-107); Globulin 3.7 g/dL (1.3-4.6); Glucose 128 mg/dL (65-115); Osmolality Calculated 303 mOsm/kg (285-295); Potassium 4.4 mmol/L (3.5-5.1); Sodium 141 mmol/L (136-145); Total Bilirubin 0.2 mg/dL (0.15-1.2); Total Protein 7.7 g/dL (6.6-8.7)
[2022-02-11 17:31] LABS: Add Urine Microscopic? YES; Bilirubin Urine Neg (Negative); Blood Urine Neg (Negative); Glucose Urine UA Norm (Normal); Ketones Urine Negative (Negative); Leukocyte Esterase Urine 1+ (Negative); Nitrate Urine Negative (Negative); Protein Urine Neg (Negative); Specific Gravity, Urine 1.015 (1.005-1.030); Urine Appearance Clear (CLEAR); Urine Color Yellow (Yellow); Urobilinogen Urine Norm (Negative); pH Urine 5 (5-7)
[2022-02-11 17:32] LABS: Add Urine Culture? Yes; Bacteria Urine 1+ /hpf; RBC Urine 0-4 /hpf (0-2); Squamous Epithelial Cell Urine 0-4 /hpf (0-5); Transitional Epi Cells Urine 0-4 /hpf; WBC Urine >100 /hpf (0-5)
[2022-02-11] MEDS: iohexol 350 mg/mL 500 mL Btl (per mL) IV (17:34)
--- NOTE | 2022-02-11 17:41 | ECG_ITS ---
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 Measurements Intervals Soper Rate: 94 P: 73 MI: 190 QRS: -18 QRSD: 110 T: 84 QT: 354 QTc: 444 Interpretive Statements SINUS RHYTHM LEFT VENTRICULAR HYPERTROPHY AND ST-T CHANGE [VOLTAGE CRITERIA PLUS ST/T ABNORMALITY] Compared to ECG 11/15/2021 11:17:43 Poor R-wave progression no longer present ST (T wave) deviation still present Electronically Signed On 02-11-2022 21:09:20 DIRECTOR OF CARDIOPULMONARY SERVICES by Billy Kaplan M.D. [id number]
[2022-02-11 18:14] LABS: Troponin 5 2HR 21.08 ng/L (0-10)
[2022-02-11 18:17] LABS: Troponin 5 2HR Delta -1.92 ABS# (0-10)
[2022-02-11] MEDS: cefTRIAXone 1,000 MG in sodium chloride 0.9% (plus) 50 ML 100 MG IV (18:25)
== END 2022-02-11 20:10 | disposition home or self-care (01) ==
PROVIDERS: Emergency Provider Emergency Medicine; PCP Nurse Practitioner Family
DX: N30.00 Acute cystitis without hematuria (principal); S22.41XA Multiple fractures of ribs, right side, initial encounter for closed fracture; W19.XXXA Unspecified fall, initial encounter; Z91.81 History of falling; D64.9 Anemia, unspecified; J90 Pleural effusion, not elsewhere classified; J44.9 Chronic obstructive pulmonary disease, unspecified; I10 Essential (primary) hypertension; F03.90 Unspecified dementia, unspecified severity, without behavioral disturbance, psychotic disturbance, mood disturbance, and anxiety
CPT/HCPCS: 70450; 71275; 74177; 80053; 81001; 83880; 84145; 84443; 84484; 85025; 87086; 93005; 96365; 99285; J0696; Q9967

== ENCOUNTER 2022-03-24 17:46 | Emergency (ER) | payer MEDICARE, MEDICAID, SELFPAY ==
[2022-03-24 17:53] VITALS: BP 129/52; PULSE 78; RESP 16; TEMP 36.6; O2SAT 92
--- NOTE | 2022-03-24 18:03 | CTR_ITS ---
PROCEDURE INFORMATION: Exam: CT Cervical Spine Without Contrast Exam date and time: 03/24/2022 7:58 PM Age: 81 years old Clinical indication: Injury or trauma; Fall; Blunt trauma TECHNIQUE: Imaging protocol: Computed tomography of the cervical spine without contrast. Radiation optimization: All CT scans at this facility use at least one of these dose optimization techniques: automated exposure control; mA and/or kV adjustment per patient size (includes targeted exams where dose is matched to clinical indication); or iterative reconstruction. COMPARISON: CT cervical spin wo con* [id number] 09/28/2017 11:00 AM RADIATION DOSE METRICS: Total DLP (mGy-cm): 211.97 FINDINGS: Bones/joints: A screw transfixes a chronic dens deformity. There is also C1 to C2 posterior fusion. Moderate to severe diffuse cervical degenerative change with advanced DDD and facet arthropathy. Old kyai-hl-grercphm T1 compression. Very severe partially assessed T2-3 DDD. No jumped, locked or perched facets visualized. Compare with prior exam, no significant change has occurred. Lungs: Lung apices are normal. Minimal apical pleural calcification. Vasculature: Advanced diffuse vascular calcification noted. Soft tissues: Unremarkable. CT/CT cervical spin wo con* [id number] IMPRESSION: 1. No acute fracture or acute subluxation visualized. 2. Multiple chronic findings above with severe atherosclerosis, severe degenerative change, and complex surgical history.
--- NOTE | 2022-03-24 18:03 | CTR_ITS ---
PROCEDURE INFORMATION: Exam: CT Head Without Contrast Exam date and time: 03/24/2022 7:56 PM Age: 81 years old Clinical indication: Injury or trauma; Fall; Blunt trauma (contusions or hematomas) TECHNIQUE: Imaging protocol: Computed tomography of the head without contrast. Radiation optimization: All CT scans at this facility use at least one of these dose optimization techniques: automated exposure control; mA and/or kV adjustment per patient size (includes targeted exams where dose is matched to clinical indication); or iterative reconstruction. COMPARISON: CT head wo con* [id number] 02/11/2022 5:11 PM RADIATION DOSE METRICS: Total DLP (mGy-cm): 993.18 FINDINGS: Brain: No focal hemorrhage or midline shift is identified. The ventricles and parenchyma show mild atrophy and moderate chronic bicerebral white matter ischemic change. Cerebral ventricles: No ventriculomegaly or evidence of hydrocephalus. Paranasal sinuses: No evidence of acute sinusitis. Mastoid air cells: Visualized mastoid air cells are well aerated. Orbital cavities: Left globe prosthesis. Bones/joints: Old-appearing nasal bone deformities. These were present on previous exam. Soft tissues: Right posterior scalp skin maldonado. Mild adjacent soft tissue injuries. CT/CT head wo con* [id number] IMPRESSION: 1. No acute intracranial abnormality. 2. Mild to moderate age-related changes. 3. See the same-day CT cervical spine report as well.
--- NOTE | 2022-03-24 18:04 | W.ED.FALL ---
HPI - Fall General: Chief Complaint: Fall Stated Complaint: FALL/ LAC TO HEAD Time Seen by Provider: 03/24/22 17:49 History of Present Illness: Patient comes in after her walker broke causing her to fall and hit her head. Denies any other injury except for her right elbow is sore. Associated symptoms-after fall: Denies abdominal pain, chest pain, headache(s) or neck pain Review of Systems Const: Denies: fever(s) or body aches Eyes: Denies: change in vision or blurry vision ENMT: Denies: throat pain or odynophagia Card: Denies: chest pain or palpitations Resp: Denies: dyspnea or productive cough GI: Denies: abdominal pain, nausea or vomiting : Denies: flank pain or dysuria Musc: Denies: neck pain or back pain Skin/Breast: Denies: rash or pruritus Neuro: Denies: headache(s) or numbness in extremities Psych: Denies: anxiety or change in appetite Endo: Denies: polyuria or excessive sweating PFSH ED PFSH: Medical History Anxiety Anxiety Arthritis COPD (chronic obstructive pulmonary disease) Dementia Depression Diverticulosis Gastritis Hip fracture Hyperlipidemia Mitral regurgitation Paroxysmal atrial fibrillation Psychiatric care Sinus tachycardia Surgical History History of ankle surgery History of back surgery History of colonoscopy (~03/2019) History of esophagogastroduodenoscopy (EGD) (~03/2019) History of left hip replacement (~03/2019) Hx of breast biopsy Hx of enucleation of left eyeball Hx of hysterectomy Family History Father CAD (coronary artery disease) Mother CAD (coronary artery disease) Brother Diabetes Lung disease Denies family history of Clotting disorder Dementia Chronic kidney disease (CKD) Suicide Anesthesia complication Bleeding disorder Cancer Stroke Social History Smoking and tobacco status: never smoked Second hand smoke exposure: No Alcohol intake: never Adopted: No Caregiver/support person: Yes Lives independently: No (LIVES IN JAIL ) Housing: [facility] Marital status: / service: No Current occupational status: retired Current occupational exposures/hazards: No Pets and animals: No History of recent travel: No Current gender identity: Female Peg/Orthodoxy: Shinto Special peg needs: No Agree to transfusion: No Financial difficulty paying for basics: Decline to Answer Physical Exam Const: COMMON NORMALS: no acute distress, patient oriented x3, healthy appearing and alert HENMT: COMMON NORMALS: normocephalic HEAD & SCALP: normocephalic OTHER: 6 cm laceration to the right scalp Eye: COMMON NORMALS: Equal, round and reactive pupils present and EOMs intact bilaterally PUPIL: Yes Equal, round and reactive pupils present Neck/C-Spine: COMMON NORMALS: full ROM and supple Resp: COMMON NORMALS: normal respiratory effort, No retractions and No use of accessory muscles Cardio: COMMON NORMALS: regular rate and regular rhythm RATE: regular rate RHYTHM: regular rhythm GI: COMMON NORMALS: Normal to inspection, nondistended, normoactive bowel sounds present, Soft to palpation and non-tender PALPATION: Yes Soft to palpation Back/Pelvis: COMMON NORMALS: thoracic and lumbar spine normal to inspection and no thoracic nor lumbar tenderness Extremity: COMMON NORMALS: full ROM OTHER: Tenderness to palpation of the right elbow Neuro: COMMON NORMALS: patient oriented x3 SENSORIUM/ORIENTATION: Yes alert Psych: COMMON NORMALS: mental status grossly normal and cooperative Skin: COMMON NORMALS: no rashes or lesions noted and no wounds GENERAL SKIN EXAM: no rashes or lesions noted Procedures Laceration Laceration 1: Site: scalp Side (If applicable): right Size (cm): 6 Description: linear Depth: simple, single layer Local Anesthetic: lidocaine 1% and with epi Amount of anesthesia used (mL): 4 Pre-repair: wound explored and irrigated extensively Skin layer closed with: other (5 maldonado) Course Vital Signs: Vital signs: Vital Signs Temperature 97.8 F 03/24/22 17:53 Pulse Rate 77 03/24/22 18:25 Respiratory Rate 14 03/24/22 20:44 Blood Pressure 134/66 03/24/22 20:44 Pulse Oximetry 94 03/24/22 20:44 Oxygen Delivery Me thod 03/24/22 20:44 MDM - Fall Medical Decision Making Patient comes in after her walker broke causing her to fall and hit her head. On physical exam she has tenderness of her right elbow with full range of motion. She also has a 6 cm laceration to the right lateral scalp. We cleaned and anesthetized the wound and placed 5 maldonado to close it. Will check CT, x-ray, and reassess. On reassessment I talked to the patient about the test results. Will discharge home at this time with precautions to return for worsening or changing symptoms. Lab Data Radiology Impressions Cervical Spine CT 03/24/22 18:03 IMPRESSION: 1. No acute fracture or acute subluxation visualized. 2. Multiple chronic findings above with severe atherosclerosis, severe degenerative change, and complex surgical history. Head CT 03/24/22 18:03 IMPRESSION: 1. No acute intracranial abnormality. 2. Mild to moderate age-related changes. 3. See the same-day CT cervical spine report as well. Elbow X-Ray 03/24/22 18:51 IMPRESSION: No acute fracture or dislocation noted. Discharge Plan Discharge Patient Disposition: Home Clinical Impression: Laceration of scalp, Stapled skin wound Condition: Stable Prescriptions: No Action Fleet Bisacodyl 10 mg/30 mL enema 10 mg [place] DAILY PRN (Reason: Constipation) acetaminophen [Tylenol] 325 mg capsule 650 mg PO Q4H PRN (Reason: Pain) ammonium lactate 12 % cream 1 applic topical DAILY Qty: 385 6RF Rx Instructions: Apply neck down daily (DME) Fast form ulnar gutter See Rx Instructions .Route .MEDSUPPLY Qty: 1 0RF Rx Instructions: As directed metoprolol tartrate 25 mg tablet 12.5 mg PO DAILY citalopram 10 mg tablet 40 mg PO DAILY (DME) Cock up splint See Rx Instructions .Route .MEDSUPPLY Qty: 1 0RF Rx Instructions: As directed diphenhydramine HCl [Banophen] 25 mg capsule 25 mg PO Q12H PRN (Reason: Itching) PreserVision AREDS [id number] capsule 1 cap PO BID aripiprazole [Abilify] 2 mg tablet 2 mg PO DAILY alprazolam 0.5 mg tablet 0.5 mg PO TID Aquaphor Ointment 1 applic topical BID Qty: 50 0RF Rx Instructions: apply to arms, legs and back twice daily pravastatin 40 mg tablet 40 mg PO BEDTIME gabapentin 300 mg capsule 300 mg PO TID diltiazem HCl 120 mg capsule,extended release 24hr 120 mg PO DAILY albuterol sulfate [ProAir HFA] 90 mcg/actuation HFA aerosol inhaler 2 puff INHALATION Q4H PRN (Reason: Shortness Of Breath) topiramate 25 mg Tablet 25 mg PO DAILY pantoprazole 40 mg Tablet,Delayed Release (Dr/Ec) 40 mg PO DAILY ropinirole 0.5 mg Tablet 0.5 mg PO DAILY tizanidine 4 mg capsule 4 mg PO TID PRN (Reason: Muscle Spasm) Imodium A-D 2 mg Tablet 2 mg PO Q6H PRN (Reason: Diarrhea) budesonide-formoterol 80-4.5 mcg/actuation Hfa Aerosol Inhaler 2 puff INHALATION BID Eucerin Cream 1 applic TOPICAL DAILY Biofreeze 0.2-3.5 % Gel 1 applic TOPICAL DAILY PRN (Reason: Pain) Rx Instructions: rub in gently and completely triamcinolone acetonide 0.1 % ointment 1 applic topical BID PRN (Reason: Itching) Rx Instructions: Apply to affected area no more than 2 weeks per month. 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
[2022-03-24 18:25] VITALS: BP 140/64; PULSE 77; RESP 16; O2SAT 94
--- NOTE | 2022-03-24 18:51 | XRR_ITS ---
PROCEDURE INFORMATION: Exam: XR Right Elbow Exam date and time: 03/24/2022 6:53 PM Age: 81 years old Clinical indication: Injury or trauma; Fall; Swelling (edema); Elbow; Right TECHNIQUE: Imaging protocol: Radiologic exam of the Right elbow. Views: 1 or 2 views. COMPARISON: No relevant prior studies available. FINDINGS: Bones/joints: No acute fracture or dislocation is noted. The skeletal structures seem age-appropriate. Mild right elbow DJD. Soft tissues: Apparent mild right elbow soft tissue swelling. Vasculature: Diffuse vascular calcification. XR/XR elbow RT 2V [id number] IMPRESSION: No acute fracture or dislocation noted.
[2022-03-24 20:44] VITALS: BP 134/66; RESP 14; O2SAT 94
[2022-03-24 22:03] VITALS: BP 136/86; PULSE 86; RESP 18; O2SAT 95
== END 2022-03-24 22:18 | disposition home or self-care (01) ==
PROVIDERS: Emergency Provider Emergency Medicine; PCP Nurse Practitioner Family
DX: S01.01XA Laceration without foreign body of scalp, initial encounter (principal); W19.XXXA Unspecified fall, initial encounter
CPT/HCPCS: 12002; 70450; 72125; 73070; 99284

== ENCOUNTER 2022-05-02 10:00 | Emergency (ER) | payer MEDICARE, MEDICAID, SELFPAY ==
--- NOTE | 2022-05-02 | XR_ITS ---
Exam: XR hip RT 2-3V wo/w pel* [id number] Date/Time of Exam: 05/02/2022 10:09 AM Reason For Exam: fall pain No acute fracture or dislocation. Healed femoral and hip fractures with intramedullary anupama and femoral neck screw noted. Vascular calcifications about the femur. IMPRESSION: 1. Old proximal and midshaft femoral fracture. No acute fracture identified. [facility] XR/XR hip RT 2-3V wo/w pel* [id number]
[2022-05-02 10:02] VITALS: BP 162/94; PULSE 99; RESP 17; TEMP 36.9; O2SAT 94; BMI 26.6
--- NOTE | 2022-05-02 10:06 | XR_ITS ---
WS: [id number] Exam: XR hip RT 2-3V wo/w pel* [id number] Date/Time of Exam: 05/02/2022 10:09 AM Reason For Exam: fall pain No acute fracture or dislocation. Healed femoral and hip fractures with intramedullary anupama and femor al neck screw noted. Vascular calcifications about the femur.
--- NOTE | 2022-05-02 10:26 | XR_ITS ---
WS: [id number] Exam: XR elbow RT min 3V* [id number] Date/Time of Exam: 05/02/2022 10:26 AM Reason For Exam: fall pain Comparison 03/24/2022. No fracture or dislocation. Mild DJD. Vascular calcifications about the elbow. No joint effusion. XR/XR elbow RT min 3V* [id number] IMPRESSION: 1. No fracture or dislocation noted.
--- NOTE | 2022-05-02 10:27 | ED_ITS ---
HPI - Fall General: Chief Complaint: Fall Stated Complaint: Right hip pain due to a fall Time Seen by Provider: 05/02/22 10:05 Source: patient Mode of arrival: EMS History of Present Illness: 81-year-old female who presents to the emergency room after a fall at [facility]. She was sitting in a walker she slid out of the walker landed on her right hip she is complaining of some right hip pain. There was no loss consciousness she did not strike her head she is not on any anticoagulants she denies any chest or abdominal pain. MD complaint: fall Onset (ago): minute(s) Fall from: chair Fall witnessed: yes, by living facility staff Place [facility] Loss of consciousness: None Prolonged down time: no Symptoms prior to fall: none Location of injury - extremities: Right: thigh (Hip) Associated symptoms-after fall: Reports difficulty walking; Denies abdominal pain, chest pain, confusion, headache(s), hematuria, lightheadedness, neck pain, numbness, short of breath, vertigo or weakness Review of Systems Const: Denies: fever(s), chills, body aches, change in appetite, fatigue or malaise ENMT: Denies: throat pain, ear or mastoid pain, nasal discharge or nasal congestion Card: Denies: chest pain or lightheadedness Resp: Denies: dyspnea, productive cough or non-productive cough GI: Denies: abdominal pain : Denies: hematuria Musc: Denies: neck pain Skin/Breast: Denies: rash or pruritus Neuro: Reports: difficulty walking; Denies: headache(s), vertigo or confusion PFS ED PFSH: Medical History Anxiety Anxiety Arthritis COPD (chronic obstructive pulmonary disease) Dementia Depression Diverticulosis Gastritis Hip fracture Hyperlipidemia Mitral regurgitation Paroxysmal atrial fibrillation Psychiatric care Sinus tachycardia Surgical History History of ankle surgery History of back surgery History of colonoscopy (~03/2019) History of esophagogastroduodenoscopy (EGD) (~03/2019) History of left hip replacement (~03/2019) Hx of breast biopsy Hx of enucleation of left eyeball Hx of hysterectomy Family History Father CAD (coronary artery disease) Mother CAD (coronary artery disease) Brother Diabetes Lung disease Denies family history of Clotting disorder Dementia Chronic kidney disease (CKD) Suicide Anesthesia complication Bleeding disorder Cancer Stroke Social History Smoking and tobacco status: never smoked Second hand smoke exposure: No Alcohol intake: never Adopted: No Caregiver/support person: Yes Lives independently: No (LIVES IN HALF-WAY ) Housing: [facility] Marital status: / service: No Current occupational status: retired Current occupational exposures/hazards: No Pets and animals: No History of recent travel: No Current gender identity: Female Peg/Restoration: Confucianist Special peg needs: No Agree to transfusion: No Financial difficulty paying for basics: Decline to Answer Physical Exam Const: GENERAL APPEARANCE: cooperative and comfortable ORIENTATION/CONSCIOUSNESS: Yes awake, Yes oriented to person, Yes oriented to place and Yes oriented to time HENMT: COMMON NORMALS: normocephalic, atraumatic and hearing grossly normal bilaterally HEAD & SCALP: normocephalic and atraumatic Resp: COMMON NORMALS: normal respiratory effort, No retractions, No use of accessory muscles and clear to auscultation bilaterally AUSCULTATION: clear to auscultation bilaterally Cardio: COMMON NORMALS: regular rate, regular rhythm and No murmurs present (Cardio) RATE: regular rate RHYTHM: regular rhythm GI: COMMON NORMALS: Soft to palpation and No hepatosplenomegaly present AUSCULTATION: Yes normoactive bowel sounds PALPATION: Yes Soft to palpation, No Tenderness to palpation present (GI), No Guarding due to palpation present (GI) and Yes No hepatosplenomegaly present Extremity: COMMON NORMALS: normal to inspection, capillary refill normal, no clubbing, cyanosis or edema, no calf tenderness and no pedal edema Neuro: SENSORIUM/ORIENTATION: Yes oriented to person, Yes oriented to place and Yes oriented to time Skin: COMMON NORMALS: no rashes or lesions noted GENERAL SKIN EXAM: no rashes or lesions noted Course Vital Signs: Vital signs: Vital Signs Temperature 98.4 F 05/02/22 10:02 Pulse Rate 99 05/02/22 10:02 Respiratory Rate 16 05/02/22 13:50 Blood Pressure 162/94 05/02/22 10:02 Pulse Oximetry 94 05/02/22 10:02 Oxygen Delivery Me thod 05/02/22 10:02 MDM - Fall Medical Decision Making Imaging reviewed no fractures noted. On 1 view of the plain film I was suspicious of a right impacted [address] showed no hip fracture there was a concern about nondisplaced lateral pubic rami fracture but on CT it is felt to be chronic. There is an area of cocern for the right hip subcapital area however I discussed with Dr. Davalos he feels this is part of her original fracture and they have not do anything different around the fixation that is currently in place. Medical Records I reviewed the patient's medical records. Lab Data I reviewed the patient's lab results. Radiology Impressions Elbow X-Ray 05/02/22 10:26 IMPRESSION: 1. No fracture or dislocation noted. Hip/Pelvis X-Ray 05/02/22 10:29 IMPRESSION: 1. No acute LEFT hip fracture is identified. 2. Highly suspicious for nondisplaced fracture involving the superior lateral pubic rami and possibly the inferior pubic rami. Pelvis CT 05/02/22 11:40 IMPRESSION: 1. Chronic LEFT superior-inferior pubic rami fractures with callus formation. No acute pubic rami fractures. 2. Acute to subacute appearing fracture of the RIGHT femoral neck with slight impaction and marginal sclerosis. This appears new since 2019. Recommend correlation with RIGHT hip pain. 3. Grade 1 anterolisth esis L4 on L5 and L5 on S1 with advanced disc space narrowing. Chronic spondylolysis L5-S1. 4. Prior postoperative changes bilateral intertrochanteric screw fixation with intramedullary rods. Message LEFT for Bakari Downs DO at 05/02/2022 12:28 PM. Discharge Plan Discharge Patient Disposition: Home Clinical Impression: Fall Condition: Stable Prescriptions: No Action Fleet Bisacodyl 10 mg/30 mL enema 10 mg [place] DAILY PRN (Reason: Constipation) acetaminophen [Tylenol] 325 mg capsule 650 mg PO Q4H PRN (Reason: Pain) ammonium lactate 12 % cream 1 applic topical DAILY Qty: 385 6RF Rx Instructions: Apply neck down daily (DME) Fast form ulnar gutter See Rx Instructions .Route .MEDSUPPLY Qty: 1 0RF Rx Instructions: As directed metoprolol tartrate 25 mg tablet 12.5 mg PO DAILY citalopram 10 mg tablet 40 mg PO DAILY (DME) Cock up splint See Rx Instructions .Route .MEDSUPPLY Qty: 1 0RF Rx Instructions: As directed diphenhydramine HCl [Banophen] 25 mg capsule 25 mg PO Q12H PRN (Reason: Itching) PreserVision AREDS [id number] capsule 1 cap PO BID aripiprazole [Abilify] 2 mg tablet 2 mg PO DAILY alprazolam 0.5 mg tablet 0.5 mg PO TID Aquaphor Ointment 1 applic topical BID Qty: 50 0RF Rx Instructions: apply to arms, legs and back twice daily pravastatin 40 mg tablet 40 mg PO BEDTIME gabapentin 300 mg capsule 300 mg PO TID diltiazem HCl 120 mg capsule,extended release 24hr 120 mg PO DAILY albuterol sulfate [ProAir HFA] 90 mcg/actuation HFA aerosol inhaler 2 puff INHALATION Q4H PRN (Reason: Shortness Of Breath) topiramate 25 mg Tablet 25 mg PO DAILY pantoprazole 40 mg Tablet,Delayed Release (Dr/Ec) 40 mg PO DAILY ropinirole 0.5 mg Tablet 0.5 mg PO DAILY tizanidine 4 mg capsule 4 mg PO TID PRN (Reason: Muscle Spasm) Imodium A-D 2 mg Tablet 2 mg PO Q6H PRN (Reason: Diarrhea) budesonide-formoterol 80-4.5 mcg/actuation Hfa Aerosol Inhaler 2 puff INHALATION BID Eucerin Cream 1 applic TOPICAL DAILY Biofreeze 0.2-3.5 % Gel 1 applic TOPICAL DAILY PRN (Reason: Pain) Rx Instructions: rub in gently and completely triamcinolone acetonide 0.1 % ointment 1 applic topical BID PRN (Reason: Itching) Rx Instructions: Apply to affected area no more than 2 weeks per month. Not for face clobetasol 0.05 % solution 1 applic topical DAILY PRN (Reason: Itching) Rx Instructions: Apply a few drops to itchy areas on scalp as needed ciprofloxacin HCl 500 mg tablet 500 mg PO BID Qty: 20 0RF Discharge Orders: Discharge ED (Routine); Ordered 05/02/22 Ordered By: Bakari Downs Referrals: Rhonda Vigil FNP [Primary Care Provider] - Discharge Diet: Usual diet Discharge Activity: Increase activity as tolerated Patient Instructions: Opioid Safety, Pain Management Activity Restrictions/Additional Instructions: You were seen today after a fall. Your initial x-rays there is question of fracture CT was done fractures in the pelvis appear to be old there is a fracture on the right hip that was questionable. Reviewed with orthopedics they feel it is clinically not significant because of the previous fracture and current fixation in that hip. Discharged home follow-up with your primary care doctor return for further problems. 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
--- NOTE | 2022-05-02 10:29 | XR_ITS ---
WS: [id number] LEFT HIP HISTORY: Pain after fall. COMPARISON: 05/02/2019 LEFT hip: Status post gamma nail and long intertrochanteric anupama. The hardware is intact. No acute hip fractures. There does appear to be a nondisplaced fracture involving the superior lateral LEFT pubic rami. Indet erminate for fracture involving the inferior pubic rami. There is extensive vascular calcification. XR/XR hip LT 2-3V wo/w pel* [id number] IMPRESSION: 1. No acute LEFT hip fracture is identified. 2. Highly suspicious for nondisplaced fracture involving the superior lateral pubic rami and possibly the inferior pubic rami.
--- NOTE | 2022-05-02 11:40 | CT_ITS ---
WS: [id number] CT pelvis TECHNIQUE: Noncontrast CT of the pelvis with coronal and sagittal reformatted images. CLINICAL INFORMATION: Fall pubic rami fractures COMPARISON: Radiograph earlier today and CT pelvis thousand 19 DLP: 462.[address] scans at [facility] use at least one of these dose optimization techniques: automated e xposure control; mA and/or kV adjustment per patient size (includes targeted exams where dose is matc hed to clinical indication); or iterative reconstruction. FINDINGS:Acute to subacute appearing fracture of the RIGHT femoral neck with slight impaction and mar ginal sclerosis. This appears new since 2019. Recommend correlation with RIGHT hip pain. Prior postoperative changes bilateral screw fixation both hips with intramedullary rods. Osteopenia. Fracture of the superior pubic ramus at the pubic root as seen on the recent radiograph appears chron ic. Associated protuberant callus formation. Additional chronic fracture LEFT inferior pubic ramus wi th callus formation. RIGHT pubic rami are normal in appearance. Mild degenerative arthritis sacroiliac joints. Chronic spondylolysis L5-S1 with grade 1 anterolisthes is measuring 6.5 mm. Grade 1 anterolisthesis L4 on L5 measuring 8.3 mm. Complete loss of disc space h eight at L4-L5. Advanced degenerative narrowing lower lumbar spine with vacuum disc phenomenon. Tricia l sacral ala. Slight cortical irregularity involving the distal coccyx anteriorly unchanged since 9. No significant surrounding soft tissue edema. Tiny fat-containing umbilical hernia. Vascular calcification. No other suspicious findings. CT/CT pelvis con [id number] IMPRESSION: 1. Chronic LEFT superior-inferior pubic rami fractures with callus formation. No acute pubic rami fractures. 2. Acute to subacute appearing fracture of the RIGHT femoral neck with slight impaction and marginal sclerosis. This appears new since 2019. Recommend correl ation with RIGHT hip pain. 3. Grade 1 anterolisth esis L4 on L5 and L5 on S1 with advanced disc space darrell rowing. Chronic spondylolysis L5-S1. 4. Prior postoperative changes bilateral intertrochanteric screw fixation with intramedullary rods. Message LEFT for Bakari Downs DO at 05/02/2022 12:28 PM.
[2022-05-02 13:50] VITALS: RESP 16
[2022-05-02] MEDS: ondansetron 2 mg/ML SDV 2 mL 4 MG IVP (13:50)
[2022-05-02] MEDS: morphine 4 mg/mL SDV 1 mL IVP (13:50)
== END 2022-05-02 15:32 | disposition home or self-care (01) ==
PROVIDERS: Emergency Provider Family Medicine; PCP Nurse Practitioner Family
DX: M25.551 Pain in right hip (principal); Z96.642 Presence of left artificial hip joint; J44.9 Chronic obstructive pulmonary disease, unspecified; E78.5 Hyperlipidemia, unspecified; W05.0XXA Fall from non-moving wheelchair, initial encounter; Y92.129 Unspecified place in nursing home as the place of occurrence of the external cause
CPT/HCPCS: 72192; 73080; 73502; 96374; 96375; 99285; J2270; J2405

== ENCOUNTER → 2022-05-27 13:55 | Outpatient (BNVA) | payer MEDICARE, MEDICAID, SELFPAY | PROVIDERS: PCP Nurse Practitioner Family; Visit Provider Internal Medicine | DX: I48.0 Paroxysmal atrial fibrillation (principal); E78.5 Hyperlipidemia, unspecified; I34.0 Nonrheumatic mitral (valve) insufficiency; J44.9 Chronic obstructive pulmonary disease, unspecified; M79.89 Other specified soft tissue disorders | CPT/HCPCS: 99213 ==

== ENCOUNTER → 2022-06-16 09:33 | Outpatient (BNVA) | payer MEDICARE, MEDICAID, SELFPAY | PROVIDERS: PCP Nurse Practitioner Family; Visit Provider Podiatrist Foot & Ankle Surgery | DX: I73.9 Peripheral vascular disease, unspecified (principal); B35.1 Tinea unguium; M20.41 Other hammer toe(s) (acquired), right foot; M20.42 Other hammer toe(s) (acquired), left foot; L84 Corns and callosities | CPT/HCPCS: 11056; 11721; 99204 ==

== ENCOUNTER → 2022-08-25 13:40 | Outpatient (BNVA) | payer MEDICARE, MEDICAID, OTHER, SELFPAY | PROVIDERS: PCP Nurse Practitioner Family; Visit Provider Podiatrist Foot & Ankle Surgery | DX: I73.9 Peripheral vascular disease, unspecified (principal); L84 Corns and callosities; B35.1 Tinea unguium; M20.41 Other hammer toe(s) (acquired), right foot; M20.42 Other hammer toe(s) (acquired), left foot; M79.671 Pain in right foot | CPT/HCPCS: 11055; 11721 ==

== ENCOUNTER → 2022-10-17 08:02 | Outpatient (BNVA) | payer MEDICARE, MEDICAID, OTHER, SELFPAY | PROVIDERS: PCP Nurse Practitioner Family; Visit Provider Podiatrist Foot & Ankle Surgery | DX: I73.9 Peripheral vascular disease, unspecified (principal); B35.1 Tinea unguium; L97.512 Non-pressure chronic ulcer of other part of right foot with fat layer exposed; M20.41 Other hammer toe(s) (acquired), right foot; M20.42 Other hammer toe(s) (acquired), left foot | CPT/HCPCS: 99213 ==

== ENCOUNTER → 2022-11-03 10:42 | Outpatient (BNVA) | payer MEDICARE, MEDICAID, SELFPAY | PROVIDERS: PCP Nurse Practitioner Family; Visit Provider Podiatrist Foot & Ankle Surgery | DX: B35.1 Tinea unguium (principal); L97.512 Non-pressure chronic ulcer of other part of right foot with fat layer exposed; I73.9 Peripheral vascular disease, unspecified; M20.41 Other hammer toe(s) (acquired), right foot; M20.42 Other hammer toe(s) (acquired), left foot | CPT/HCPCS: 11042; 11721 ==

== ENCOUNTER → 2022-11-21 08:58 | Outpatient (BNVA) | payer MEDICARE, MEDICAID, SELFPAY | PROVIDERS: PCP Nurse Practitioner Family; Visit Provider Podiatrist Foot & Ankle Surgery | DX: L97.512 Non-pressure chronic ulcer of other part of right foot with fat layer exposed (principal); B35.1 Tinea unguium; I73.9 Peripheral vascular disease, unspecified; M20.41 Other hammer toe(s) (acquired), right foot; M20.42 Other hammer toe(s) (acquired), left foot | CPT/HCPCS: 99212 ==

== ENCOUNTER → 2022-11-24 14:03 | Outpatient (BNVA) | payer MEDICARE, MEDICAID, SELFPAY | PROVIDERS: PCP Family Medicine; Visit Provider Nurse Practitioner Family | DX: L60.3 Nail dystrophy (principal); L30.4 Erythema intertrigo; D22.5 Melanocytic nevi of trunk; L81.4 Other melanin hyperpigmentation; L85.3 Xerosis cutis; F42.9 Obsessive-compulsive disorder, unspecified | CPT/HCPCS: 99214 ==

== ENCOUNTER → 2022-11-26 14:19 | Outpatient (BNVA) | payer MEDICARE, MEDICAID, SELFPAY | PROVIDERS: PCP Family Medicine; Visit Provider Internal Medicine | DX: I48.0 Paroxysmal atrial fibrillation (principal); E78.5 Hyperlipidemia, unspecified; I34.0 Nonrheumatic mitral (valve) insufficiency; J44.9 Chronic obstructive pulmonary disease, unspecified; M79.89 Other specified soft tissue disorders | CPT/HCPCS: 99214 ==

== ENCOUNTER → 2022-11-27 08:46 | Outpatient (BNVA) | payer MEDICARE, MEDICAID, SELFPAY | PROVIDERS: PCP Family Medicine; Visit Provider Podiatrist Foot & Ankle Surgery | DX: L97.512 Non-pressure chronic ulcer of other part of right foot with fat layer exposed (principal); B35.1 Tinea unguium; I73.9 Peripheral vascular disease, unspecified; M20.41 Other hammer toe(s) (acquired), right foot; M20.42 Other hammer toe(s) (acquired), left foot | CPT/HCPCS: 99212 ==

== ENCOUNTER → 2022-12-25 10:37 | Outpatient (BNVA) | payer MEDICARE, MEDICAID, SELFPAY | PROVIDERS: PCP Family Medicine; Visit Provider Podiatrist Foot & Ankle Surgery | DX: Z51.89 Encounter for other specified aftercare (principal); L97.512 Non-pressure chronic ulcer of other part of right foot with fat layer exposed; B35.1 Tinea unguium; I73.9 Peripheral vascular disease, unspecified; M20.41 Other hammer toe(s) (acquired), right foot; M20.42 Other hammer toe(s) (acquired), left foot | CPT/HCPCS: 99213 ==

== ENCOUNTER → 2023-01-12 10:10 | Outpatient (BNVA) | payer MEDICARE, MEDICAID, SELFPAY | PROVIDERS: PCP Family Medicine; Visit Provider Podiatrist Foot & Ankle Surgery | DX: B35.1 Tinea unguium (principal); L97.512 Non-pressure chronic ulcer of other part of right foot with fat layer exposed; I73.9 Peripheral vascular disease, unspecified; M20.41 Other hammer toe(s) (acquired), right foot; M20.42 Other hammer toe(s) (acquired), left foot | CPT/HCPCS: 11721; 99213 ==

== ENCOUNTER → 2023-02-02 08:43 | Outpatient (BNVA) | payer MEDICARE, MEDICAID, SELFPAY | PROVIDERS: PCP Family Medicine; Visit Provider Podiatrist Foot & Ankle Surgery | DX: Z51.89 Encounter for other specified aftercare (principal); B35.1 Tinea unguium; L97.512 Non-pressure chronic ulcer of other part of right foot with fat layer exposed; I73.9 Peripheral vascular disease, unspecified; M20.41 Other hammer toe(s) (acquired), right foot; M20.42 Other hammer toe(s) (acquired), left foot | CPT/HCPCS: 99213 ==

== ENCOUNTER → 2023-02-10 13:46 | Outpatient (BNVA) | payer MEDICARE, MEDICAID, OTHER, SELFPAY | PROVIDERS: PCP Family Medicine; Visit Provider Podiatrist Foot & Ankle Surgery | DX: M20.41 Other hammer toe(s) (acquired), right foot (principal); I73.9 Peripheral vascular disease, unspecified; B35.1 Tinea unguium; L97.512 Non-pressure chronic ulcer of other part of right foot with fat layer exposed; M20.42 Other hammer toe(s) (acquired), left foot | CPT/HCPCS: 28010 ==

== ENCOUNTER → 2023-02-24 10:01 | Outpatient (BNVA) | payer MEDICARE, MEDICAID, SELFPAY | PROVIDERS: PCP Family Medicine; Visit Provider Podiatrist Foot & Ankle Surgery | DX: B35.1 Tinea unguium (principal); L97.512 Non-pressure chronic ulcer of other part of right foot with fat layer exposed; I73.9 Peripheral vascular disease, unspecified; M20.41 Other hammer toe(s) (acquired), right foot; M20.42 Other hammer toe(s) (acquired), left foot | CPT/HCPCS: 99213 ==

== ENCOUNTER → 2023-02-25 11:12 | Outpatient (BNVA) | payer MEDICARE, MEDICAID, SELFPAY | PROVIDERS: PCP Family Medicine; Visit Provider Nurse Practitioner Family | DX: L30.4 Erythema intertrigo (principal); D22.5 Melanocytic nevi of trunk; L81.4 Other melanin hyperpigmentation; L85.3 Xerosis cutis; F42.4 Excoriation (skin-picking) disorder; L57.8 Other skin changes due to chronic exposure to nonionizing radiation | CPT/HCPCS: 99214 ==

== ENCOUNTER → 2023-03-04 09:33 | Outpatient (BNVA) | payer MEDICARE, MEDICAID, SELFPAY | PROVIDERS: PCP Family Medicine; Visit Provider Specialist | DX: S43.102A Unspecified dislocation of left acromioclavicular joint, initial encounter; W19.XXXA Unspecified fall, initial encounter | CPT/HCPCS: 73030; 99204 ==

== ENCOUNTER → 2023-03-31 09:08 | Outpatient (BNVA) | payer MEDICARE, MEDICAID, SELFPAY | PROVIDERS: PCP Family Medicine; Visit Provider Orthopaedic Surgery | DX: S32.592A Other specified fracture of left pubis, initial encounter for closed fracture; W19.XXXA Unspecified fall, initial encounter | CPT/HCPCS: 72170; 99203 ==

== ENCOUNTER → 2023-04-23 14:55 | Outpatient (BNVA) | payer MEDICARE, MEDICAID, SELFPAY | PROVIDERS: PCP Family Medicine; Visit Provider Podiatrist Foot & Ankle Surgery | DX: E11.8 Type 2 diabetes mellitus with unspecified complications (principal); B35.1 Tinea unguium; L97.512 Non-pressure chronic ulcer of other part of right foot with fat layer exposed; I73.9 Peripheral vascular disease, unspecified; M20.41 Other hammer toe(s) (acquired), right foot; M20.42 Other hammer toe(s) (acquired), left foot; E11.621 Type 2 diabetes mellitus with foot ulcer | CPT/HCPCS: 11721 ==

== ENCOUNTER 2023-05-02 11:07 | Emergency (ER) | payer MEDICARE, MEDICAID, SELFPAY ==
[2023-05-02 11:12] VITALS: BP 128/73; PULSE 94; RESP 18; TEMP 36.7; O2SAT 96
[2023-05-02 11:24] VITALS: BP 128/73; PULSE 74; RESP 14; O2SAT 93
--- NOTE | 2023-05-02 11:24 | XRR_ITS ---
PROCEDURE INFORMATION: Exam: XR Right Wrist Exam date and time: 05/02/2023 11:37 AM Age: 82 years old Clinical indication: Right; Patient HX: RT wrist pain post fall TECHNIQUE: Imaging protocol: Radiologic exam of the right wrist. Views: 3 or more views. COMPARISON: No relevant prior studies available. FINDINGS: Bones/joints: Osteopenia. Degenerative changes involving the wrist. No fracture. Soft tissues: Normal. XR/XR wrist RT min 3V* [id number] IMPRESSION: No acute bony abnormality.
--- NOTE | 2023-05-02 11:24 | W.ED.EXTPRO ---
HPI - Extremity Problem General: Chief complaint: Extremity Problem,Nontraumatic Stated complaint: RIGHT HAND SWELLING Time Seen by Provider: 05/02/23 11:07 History of Present Illness: 82-year-old female presents to the emergency department via EMS personnel from her long-term care facility. The patient states that she has right hand pain. She states that she feels like her knuckles are swollen. She does have a history of rheumatoid arthritis with severe ulnar deviation. The patient states that her roommate had provided information to EMS and that her roommate told EMS personnel that she had fallen. She states she normally utilizes a wheelchair to get around and she states she attempted to call for help and pain relief this morning at the [place] [facility] from the staff at that facility and she states that she did not get any response. She states she has called 911 approximately 5 times today until she was brought to the emergency department for her right hand pain. She states she did call her son Elliott and advised him that she was coming to the emergency department to be evaluated. She denies additional complaints of pain or injury. There is no obvious signs of traumatic injury to the patient. Review of Systems General: Reports: 10 or more systems reviewed and unremarkable except in HPI and below Musc: Reports: extremity pain, joint pain and deformity ON LICENSE OF [facility] ED PFSH: Medical History Major depressive disorder, recurrent episode with episodes of anxiety Psychiatric care Depression Anxiety Paroxysmal atrial fibrillation Mitral regurgitation Diverticulosis Gastritis Hyperlipidemia Anxiety Arthritis Dementia Sinus tachycardia COPD (chronic obstructive pulmonary disease) Hip fracture Surgical History History of back surgery Hx of enucleation of left eyeball Hx of breast biopsy Hx of hysterectomy History of ankle surgery History of left hip replacement (~03/2019) History of esophagogastroduodenoscopy (EGD) (~03/2019) History of colonoscopy (~03/2019) Family History Father CAD (coronary artery disease) Mother CAD (coronary artery disease) Brother Diabetes Lung disease Denies family history of Clotting disorder Dementia Chronic kidney disease (CKD) Suicide Anesthesia complication Bleeding disorder Cancer Stroke Social History (Reviewed 04/23/23 @ 15:16 by PASQUALE Slaughter Smoking and tobacco/nicotine status: never used tobacco/nicotine Second hand smoke exposure: No Alcohol intake: never Substance/Drug Use: never Adopted: No Caregiver/support person: Yes Lives independently: No (LIVES IN SNF ) Housing: Long Term Marital status: / service: No Current occupational status: retired Current occupational exposures/hazards: No Pets and animals: No Do you think of yourself as: Straight/Heterosexual Current gender identity: Female Peg/Restoration: Congregational Special peg needs: No Agree to transfusion: No Physical Exam Narrative: EXAM NARRATIVE: Constitutional: the patient appears well nourished and of normal development. Vital signs as documented. No acute distress at present. Alert and oriented-to person, place, time and situation. Head, eyes, ears, nose, mouth, throat: Normocephalic, atraumatic. Pupils-equal, round, reactive to light. No scleral icterus. Normal-appearing external ears. Normal appearing nasal turbinates, no drainage. No obvious oral lesions, posterior oropharynx without erythema or exudates. Neck: Supple, trachea is midline, no lymphadenopathy, no jugular venous distension, thyromegaly, or carotid bruits. Carotid upstrokes are brisk bilaterally. Lungs: clear to auscultation to all lung mclean. Symmetrical rise and fall of chest, no obvious signs of increased work of breathing at present. Cardiac: Regular rate and rhythm, positive S1, S2. No murmurs, rubs or gallops that I can appreciate Abdomen: Soft, non-tender to palpation, normal active bowel sounds to all quadrants. No palpable masses, no organomegaly and abdominal bruits. Extremities: 2+ pulses in the upper extremities that are equal bilaterally, 2+ pulses in the lower extremities that are equal bilaterally. Non-edematous. Moves all extremities, sensation to all extremities are noted. Significant ulnar deviation and Heberden's nodes noted to the bilateral hands. Skin: Warm, dry, intact. Course Vital Signs: Vital signs: Vital Signs Temperature 98.1 F 05/02/23 11:12 Pulse Rate 74 05/02/23 11:24 Respiratory Rate 14 05/02/23 11:24 Blood Pressure 128/73 05/02/23 11:24 Pulse Oximetry 93 05/02/23 11:24 Oxygen Delivery Me thod Room Air 05/02/23 11:24 MDM - Extremity (Nontraumatic) Medical Decision Making Physical exam completed and documented given the patient's severe ulnar deviation I suspect her pain in her right hand is secondary to her rheumatoid arthritis. I will obtain radiographic examination of her right hand to evaluate. There does not appear to be any additional signs of trauma or injury she does have limited supination of her right wrist and she does have increased pain with attempts at flexion and extension of her right digits. Medical Records I reviewed the patient's medical records. Lab Data Radiology Impressions Wrist X-Ray 05/02/23 11:24 IMPRESSION: No acute bony abnormality. All radiology interpretation(s) finalized by discharge Discharge Plan Discharge Patient Disposition: Home Clinical Impression: Pain in joints of right hand Rheumatoid arthritis involving both hands Qualifiers: Rheumatoid factor presence: unspecified presence Qualified Code(s): M06.9 - Rheumatoid arthritis, unspecified Condition: Stable Prescriptions: No Action acetaminophen [Tylenol] 325 mg capsule 650 mg PO Q4H PRN (Reason: Pain) (DME) Fast form ulnar gutter See Rx Instructions .Route .MEDSUPPLY Qty: 1 0RF Rx Instructions: As directed metoprolol tartrate 25 mg tablet 12.5 mg PO QAM (DME) Cock up splint See Rx Instructions .Route .MEDSUPPLY Qty: 1 0RF Rx Instructions: As directed PreserVision AREDS [id number] capsule 1 cap PO BID aripiprazole [Abilify] 2 mg tablet 2 mg PO DAILY alprazolam 0.5 mg tablet 0.5 mg PO BID gabapentin 300 mg capsule 300 mg PO TID diltiazem HCl 120 mg capsule,extended release 24hr 120 mg PO QAM topiramate 25 mg Tablet 25 mg PO QAM pantoprazole 40 mg Tablet,Delayed Release (Dr/Ec) 40 mg PO QAM ropinirole 0.5 mg Tablet 0.5 mg PO QAM citalopram 40 mg tablet 40 mg PO QAM alprazolam 0.25 mg tablet 0.25 mg PO DAILY Milk of Magnesia 400 mg/5 mL Suspension 30 ml PO EVERY OTHER DAY PRN (Reason: Constipation) Fleet Enema 19-7 gram/118 mL Enema 118 ml AR DAILY PRN (Reason: Constipation) pravastatin 20 mg tablet 20 mg PO BEDTIME Artificial Tears (cmc) 1 % Drops 2 drp OPHTHALMIC (EYE) QID albuterol sulfate 2.5 mg /3 mL (0.083 %) Solution For Nebulization 2.5 mg INHALATION Q4H PRN (Reason: Shortness Of Breath Or Wheezing) tizanidine 4 mg Tablet 2 mg PO Q8H PRN (Reason: Muscle Spasm) tramadol 50 mg tablet 50 mg PO Q6H PRN (Reason: Pain) ketoconazole 2 % cream 1 applic TOPICAL Q12H PRN (Reason: PROPHYLAXIS) Rx Instructions: TO GROIN AND SKIN FOLDS Voltaren 1 % Gel 2 g TOPICAL BID Rx Instructions: TO RIGHT WRIST Aquaphor Ointment 1 applic topical Q8H PRN (Reason: XEROSIS CUTIS) Eucerin Cream 1 applic TOPICAL QPM clobetasol 0.05 % solution 1 applic topical DAILY PRN (Reason: Itching) Rx Instructions: Apply a few drops to itchy areas on scalp as needed Discharge Orders: Discharge ED (Routine); Ordered 05/02/23 Ordered By: Eric Pollack Referrals: Philipp Ibrahim Jr, MD [Primary Care Provider] - Discharge Diet: Usual diet Discharge Activity: Resume usual activity Patient Instructions: Opioid Safety, Pain Management Activity Restrictions/Additional Instructions: Activity Restrictions/Additional Instructions: Thank you for choosing [facility] for your healthcare needs today. Please realize that you were seen in the Emergency Department and that we are providing you with an emergency medical screening exam and this may not be a complete and all inclusive of all the testing and or medical work-up that you may need to determine your ailment or severity of your illness. It is very important that you follow-up as instructed with your Primary care provider or Specialist for additional evaluation and to discuss your medical treatment plan. You may return to the Emergency Department should you have concerns or if your condition changes or worsens in any way. Coding Level of Care Code ED Half Backer for Jone Guy
--- NOTE | 2023-05-02 12:42 | PC.PHAR ---
Addendum entered by Christina Urbina 05/02/23 12:46: SPOKE WITH NURSE PÉREZ ABOUT TIZANIDINE 4 MG TAKE 2 MG (1/2) CAPSULE EVERY 8 HOURS NEEDED. ENTERED CAPSULE AND WAS OK'D TO CHANGE TO TABLET FOR FUTURE REFERENCE. 05/02/23 Original Note: PT IS FROM [facility] IN [place] [phone]
[2023-05-02] MEDS: ketorolac 30 mg/mL INJ IM (13:06)
[2023-05-02 18:40] VITALS: BP 128/73; PULSE 80; RESP 16; O2SAT 92
[2023-05-02 19:02] VITALS: BP 128/73; PULSE 80; RESP 16; TEMP 36.7; O2SAT 92
== END 2023-05-02 19:03 | disposition home or self-care (01) ==
PROVIDERS: Emergency Provider Internal Medicine; PCP Family Medicine
DX: M06.841 Other specified rheumatoid arthritis, right hand (principal); M06.842 Other specified rheumatoid arthritis, left hand; E78.5 Hyperlipidemia, unspecified; F03.90 Unspecified dementia, unspecified severity, without behavioral disturbance, psychotic disturbance, mood disturbance, and anxiety; J44.9 Chronic obstructive pulmonary disease, unspecified
CPT/HCPCS: 73110; 96372; 99284; J1885

== ENCOUNTER → 2023-05-12 10:19 | Outpatient (BNVA) | payer MEDICARE, MEDICAID, SELFPAY | PROVIDERS: PCP Family Medicine; Visit Provider Orthopaedic Surgery | DX: S32.592D Other specified fracture of left pubis, subsequent encounter for fracture with routine healing (principal); X58.XXXD Exposure to other specified factors, subsequent encounter | CPT/HCPCS: 72170; 99213 ==

== ENCOUNTER 2023-06-17 09:08 | Emergency (ER) | payer MEDICARE, MEDICAID, SELFPAY ==
[2023-06-17 09:09] VITALS: BP 128/72; PULSE 107; RESP 18; TEMP 36.9; O2SAT 91
--- NOTE | 2023-06-17 09:22 | CT_ITS ---
WS: [id number] CT CERVICAL SPINE HISTORY: trauma TECHNIQUE: Contiguous 2.0 mm axial imaging performed through the entire cervical spine. Sagittal and coronal reformats also performed. All CT scans at [facility] use at least one of these dose o ptimization techniques: automated exposure control; mA and/or kV adjustment per patient size (include s targeted exams where dose is matched to clinical indication); or iterative reconstruction. DLP: 1401.93 mGy.cm COMPARISON: 03/24/2022 Marked increase in the cervical lordosis. Prior screw fixation at C2-3. Vertical screw through the od ontoid. No acute fracture identified. Posterior C1 and C2 pedicle screws are identified. There is sig nificant lucency around the screws at C1 indicating loosening. No fracture of the hardware is identif ied. No acute vertebral body fracture. Disc spaces are all narrowed. Facet joints are narrowed but appropr iately aligned. No widening or asymmetry. Multilevel mild facet joint arthritis with foraminal narrow ing. Vertebral artery and carotid artery calcifications. IMPRESSION: 1. Marked increase in cervical lordosis. 2. No acute fracture or malalignment. 3. Postsurgical changes at C2-3 with an odontoid screw. 4. Pedicle screws at C1 with significant surrounding lucency suggesting loosening.
--- NOTE | 2023-06-17 09:24 | CT_ITS ---
WS: [id number] CT HEAD NONCONTRAST HISTORY: trauma TECHNIQUE: Contiguous axial imaging performed through the brain in 2.5 mm imaging. Bone and soft tiss ue windows. Sagittal and coronal reformats reviewed. All CT scans at [facility] use at least one of these dose optimization techniques: automated exposure control; mA and/or kV adjustment per pa tient size (includes targeted exams where dose is matched to clinical indication); or iterative recon struction. DLP: 1401.93 mGy.cm COMPARISON: 03/24/2022 No acute intracranial hemorrhage, midline shift or mass effect. Moderate atrophy with extensive small vessel ischemic type changes. Small lacunar infarct LEFT cerebe llum. Ventricles: Normal size with no hydrocephalus. No inferior displacement of the cerebellar tonsils. Paranasal sinuses: As visualized are clear. Mastoid air cells: Well pneumatized. Calvarium and scalp: No fracture. LEFT frontal scalp hematoma, small. IMPRESSION: 1. No acute intracranial hemorrhage or edema. 2. Moderate atrophy with extensive small vessel ischemic disease. 3. Small LEFT frontal scalp hematoma.
--- NOTE | 2023-06-17 09:24 | ED_ITS ---
HPI - Fall General: Chief Complaint: Fall Stated Complaint: FALL Time Seen by Provider: 06/17/23 09:11 Source: patient Mode of arrival: ambulatory History of Present Illness: 82-year-old female from [facility] she had bent over to pick something up and lost her balance and fell forward hit her head on a edge of furniture. She has 2 hematomas on the forehead and a small partial-thickness laceration left frontal area no reported loss consciousness she does take aspirin daily no other anticoagulants. No nausea or vomiting she is awake and alert at her usual baseline. MD complaint: fall Onset (ago): minute(s) Fall from: standing Fall witnessed: no Place fall occurred: snf/SNF Prolonged down time: no Symptoms prior to fall: none Context: tripped/slipped Associated symptoms-after fall: Denies abdominal pain, chest pain, confusion, difficulty walking, headache(s), hematuria, lightheadedness, neck pain, numbness, short of breath, vertigo or weakness Review of Systems Const: Denies: fever(s) or chills Card: Denies: chest pain or lightheadedness Resp: Denies: dyspnea GI: Denies: abdominal pain : Denies: hematuria Musc: Denies: neck pain Skin/Breast: Denies: rash Neuro: Denies: headache(s), difficulty walking, vertigo or confusion PFS ED PFSH: Medical History Major depressive disorder, recurrent episode with episodes of anxiety Psychiatric care Depression Anxiety Paroxysmal atrial fibrillation Mitral regurgitation Diverticulosis Gastritis Hyperlipidemia Anxiety Arthritis Dementia Sinus tachycardia COPD (chronic obstructive pulmonary disease) Hip fracture Surgical History History of back surgery Hx of enucleation of left eyeball Hx of breast biopsy Hx of hysterectomy History of ankle surgery History of left hip replacement (~03/2019) History of esophagogastroduodenoscopy (EGD) (~03/2019) History of colonoscopy (~03/2019) Family History Father CAD (coronary artery disease) Mother CAD (coronary artery disease) Brother Diabetes Lung disease Denies family history of Clotting disorder Dementia Chronic kidney disease (CKD) Suicide Anesthesia complication Bleeding disorder Cancer Stroke Social History Smoking and tobacco/nicotine status: never used tobacco/nicotine Second hand smoke exposure: No Alcohol intake: never Substance/Drug Use: never Adopted: No Caregiver/support person: Yes Lives independently: No (LIVES IN [facility] ) Housing: Jail Marital status: / service: No Current occupational status: retired Current occupational exposures/hazards: No Pets and animals: No Do you think of yourself as: Straight/Heterosexual Current gender identity: Female Peg/Jain: Protestant Special peg needs: No Agree to transfusion: No Physical Exam Const: GENERAL APPEARANCE: cooperative and comfortable OWEN ENTATION/CONSCIOUSNESS: Yes awake HENMT: COMMON NORMALS: normocephalic and hearing grossly normal bilaterally HEAD & SCALP: normocephalic OTHER: Partial-thickness stellate laceration overlying hematoma in the left frontal area there is a small hematoma in the right frontal area just above the eye with no laceration. No active bleeding from either. Resp: COMMON NORMALS: normal respiratory effort, No retractions, No use of accessory muscles and clear to auscultation bilaterally AUSCULTATION: clear to auscultation bilaterally Cardio: COMMON NORMALS: regular rate, regular rhythm and No murmurs present (Cardio) RATE: regular rate RHYTHM: regular rhythm GI: COMMON NORMALS: Soft to palpation and No hepatosplenomegaly present AUSCULTATION: Yes normoactive bowel sounds PALPATION: Yes Soft to palpation, No Tenderness to palpation present (GI), No Guarding due to palpation present (GI) and Yes No hepatosplenomegaly present Extremity: COMMON NORMALS: normal to inspection, capillary refill normal, no clubbing, cyanosis or edema, no calf tenderness and no pedal edema OTHER: Palpation of clavicles and movement of all 4 extremities without eliciting any pain no obvious deformity or other injury noted Skin: COMMON NORMALS: no rashes or lesions noted GENERAL SKIN EXAM: no rashes or lesions noted Course Vital Signs: Vital signs: Vital Signs Temperature 98.4 F 06/17/23 09:09 Pulse Rate 107 H 06/17/23 09:09 Respiratory Rate 18 06/17/23 09:09 Blood Pressure 128/72 06/17/23 09:09 Pulse Oximetry 91 06/17/23 09:09 Oxygen Delivery Me thod Room Air 06/17/23 09:09 MDM - Fall Medical Decision Making CT head and neck negative Steri-Strips applied to the partial-thickness laceration on the left side of the forehead return to the snf follow-up with primary care as needed at the snf Medical Records I reviewed the patient's medical records. Lab Data I reviewed the patient's lab results. All radiology interpretation(s) finalized by discharge Discharge Plan Discharge Patient Disposition: Home Clinical Impression: Closed head injury without loss of consciousness, Fall Condition: Stable Prescriptions: No Action acetaminophen [Tylenol] 325 mg capsule 650 mg PO Q4H PRN (Reason: Pain) (DME) Fast form ulnar gutter See Rx Instructions .Route .MEDSUPPLY Qty: 1 0RF Rx Instructions: As directed metoprolol tartrate 25 mg tablet 12.5 mg PO QAM (DME) Cock up splint See Rx Instructions .Route .MEDSUPPLY Qty: 1 0RF Rx Instructions: As directed PreserVision AREDS [id number] snup-[id number] capsule 1 cap PO BID aripiprazole [Abilify] 2 mg tablet 2 mg PO DAILY alprazolam 0.5 mg tablet 0.5 mg PO BID gabapentin 300 mg capsule 300 mg PO TID diltiazem HCl 120 mg capsule,extended release 24hr 120 mg PO QAM topiramate 25 mg Tablet 25 mg PO QAM pantoprazole 40 mg Tablet,Delayed Release (Dr/Ec) 40 mg PO QAM ropinirole 0.5 mg Tablet 0.5 mg PO QAM citalopram 40 mg tablet 40 mg PO QAM alprazolam 0.25 mg tablet 0.25 mg PO DAILY magnesium hydroxide [Milk of Magnesia] 400 mg/5 mL Suspension 30 ml PO EVERY OTHER DAY PRN (Reason: Constipation) Fleet Enema 19-7 gram/118 mL Enema 118 ml MO DAILY PRN (Reason: Constipation) pravastatin 20 mg tablet 20 mg PO BEDTIME Artificial Tears (cmc) 1 % Drops 2 drp OPHTHALMIC (EYE) QID albuterol sulfate 2.5 mg /3 mL (0.083 %) Solution For Nebulization 2.5 mg INHALATION Q4H PRN (Reason: Shortness Of Breath Or Wheezing) tizanidine 4 mg Tablet 2 mg PO Q8H PRN (Reason: Muscle Spasm) tramadol 50 mg tablet 50 mg PO Q6H PRN (Reason: Pain) ketoconazole 2 % cream 1 applic TOPICAL Q12H PRN (Reason: PROPHYLAXIS) Rx Instructions: TO GROIN AND SKIN FOLDS Aquaphor Ointment 1 applic topical Q8H PRN (Reason: XEROSIS CUTIS) [place] 5-325 mg Tablet 1 tab PO Q6H PRN (Reason: Pain) guaifenesin 100 mg/5 mL Liquid 200 mg PO Q4H PRN (Reason: Cough) clobetasol 0.05 % solution 1 applic topical DAILY PRN (Reason: Itching) Rx Instructions: Apply a few drops to itchy areas on scalp as needed Discharge Orders: Discharge ED (Routine); Ordered 06/17/23 Ordered By: Bakari Downs Referrals: Philipp Ibrahim Jr, MD [Primary Care Provider] - Patient Instructions: Opioid Safety, Pain Management Activity Restrictions/Additional Instructions: Thank you for choosing [facility] for your healthcare needs today. Please realize this is an emergency room and that we are providing you with a medical screening exam and this may not be complete and all inclusive of all the testing and or work up that you may need to determine your ailment or severity of your illness. It is very important that you follow up as instructed or that you return to the Emergency Department should you have concerns or if your condition changes or worsens in any way. You were seen in the emergency room today after a fall CT of your head and neck did not show any acute injury. Steri-Strips were applied to the partial- thickness laceration on the forehead the skin be allowed to fall off on their own your tetanus was updated while you were here as well. Coding Level of Care Code ED Double Backer for Jone Guy
[2023-06-17] MEDS: tetanus-diphtheria tox (adult) 0.5 mL SDV IM (09:52)
== END 2023-06-17 12:10 | disposition home or self-care (01) ==
PROVIDERS: Emergency Provider Family Medicine; PCP Family Medicine
DX: S01.81XA Laceration without foreign body of other part of head, initial encounter (principal); E78.5 Hyperlipidemia, unspecified; F03.90 Unspecified dementia, unspecified severity, without behavioral disturbance, psychotic disturbance, mood disturbance, and anxiety; J44.9 Chronic obstructive pulmonary disease, unspecified; W01.190A Fall on same level from slipping, tripping and stumbling with subsequent striking against furniture, initial encounter; Z23 Encounter for immunization
CPT/HCPCS: 70450; 72125; 90471; 90714; 99284

== ENCOUNTER → 2023-07-09 10:04 | Outpatient (BNVA) | payer MEDICARE, MEDICAID, OTHER, SELFPAY | PROVIDERS: PCP Family Medicine; Visit Provider Podiatrist Foot & Ankle Surgery | DX: B35.1 Tinea unguium (principal); I73.9 Peripheral vascular disease, unspecified; M20.41 Other hammer toe(s) (acquired), right foot; M20.42 Other hammer toe(s) (acquired), left foot | CPT/HCPCS: 11721 ==

== ENCOUNTER → 2023-08-26 13:48 | Outpatient (BNVA) | payer MEDICARE, MEDICAID, SELFPAY | PROVIDERS: PCP Family Medicine; Visit Provider Internal Medicine | DX: I48.0 Paroxysmal atrial fibrillation (principal); E78.5 Hyperlipidemia, unspecified; I34.0 Nonrheumatic mitral (valve) insufficiency; J44.9 Chronic obstructive pulmonary disease, unspecified; M79.89 Other specified soft tissue disorders | CPT/HCPCS: 99214 ==

== ENCOUNTER → 2023-09-10 09:49 | Outpatient (BNVA) | payer MEDICARE, MEDICAID, SELFPAY | PROVIDERS: PCP Family Medicine; Visit Provider Podiatrist Foot & Ankle Surgery | DX: B35.1 Tinea unguium (principal); I73.9 Peripheral vascular disease, unspecified; M20.41 Other hammer toe(s) (acquired), right foot; M20.42 Other hammer toe(s) (acquired), left foot | CPT/HCPCS: 11721 ==

== ENCOUNTER → 2023-11-12 12:51 | Outpatient (BNVA) | payer MEDICARE, MEDICAID, OTHER, SELFPAY | PROVIDERS: PCP Family Medicine; Visit Provider Podiatrist Foot & Ankle Surgery | DX: B35.1 Tinea unguium (principal); I73.9 Peripheral vascular disease, unspecified; M20.41 Other hammer toe(s) (acquired), right foot; M20.42 Other hammer toe(s) (acquired), left foot | CPT/HCPCS: 11721 ==

== ENCOUNTER → 2024-01-14 13:05 | Outpatient (BNVA) | payer MEDICARE, MEDICAID, SELFPAY | PROVIDERS: PCP Family Medicine; Visit Provider Podiatrist Foot & Ankle Surgery | DX: B35.1 Tinea unguium (principal); I73.9 Peripheral vascular disease, unspecified; M20.41 Other hammer toe(s) (acquired), right foot; M20.42 Other hammer toe(s) (acquired), left foot | CPT/HCPCS: 11721 ==

== ENCOUNTER → 2024-03-17 13:51 | Outpatient (BNVA) | payer MEDICARE, MEDICAID, SELFPAY | PROVIDERS: PCP Family Medicine; Visit Provider Podiatrist Foot & Ankle Surgery | DX: B35.1 Tinea unguium (principal); I73.9 Peripheral vascular disease, unspecified; M20.41 Other hammer toe(s) (acquired), right foot; M20.42 Other hammer toe(s) (acquired), left foot | CPT/HCPCS: 11721 ==

== ENCOUNTER → 2024-05-31 09:16 | Outpatient (BNVA) | payer MEDICARE, MEDICAID, SELFPAY | PROVIDERS: PCP Family Medicine; Visit Provider Nurse Practitioner Family | DX: L21.8 Other seborrheic dermatitis (principal); D22.5 Melanocytic nevi of trunk; L81.4 Other melanin hyperpigmentation; L85.3 Xerosis cutis; F42.4 Excoriation (skin-picking) disorder; L28.1 Prurigo nodularis; L57.8 Other skin changes due to chronic exposure to nonionizing radiation | CPT/HCPCS: 99214 ==

== ENCOUNTER → 2024-06-01 14:34 | Outpatient (BNVA) | payer MEDICARE, MEDICAID, SELFPAY | PROVIDERS: PCP Family Medicine; Visit Provider Internal Medicine | DX: I48.0 Paroxysmal atrial fibrillation (principal); E78.5 Hyperlipidemia, unspecified; I34.0 Nonrheumatic mitral (valve) insufficiency; J44.9 Chronic obstructive pulmonary disease, unspecified; M79.89 Other specified soft tissue disorders | CPT/HCPCS: 99213 ==

== ENCOUNTER → 2024-06-08 14:46 | Outpatient (BNVA) | payer MEDICARE, MEDICAID, SELFPAY | PROVIDERS: PCP Family Medicine; Visit Provider Podiatrist Foot & Ankle Surgery | DX: I73.9 Peripheral vascular disease, unspecified (principal); B35.1 Tinea unguium; M20.41 Other hammer toe(s) (acquired), right foot; M20.42 Other hammer toe(s) (acquired), left foot | CPT/HCPCS: 11721 ==

== ENCOUNTER → 2024-08-10 14:03 | Outpatient (BNVA) | payer MEDICARE, MEDICAID, SELFPAY | PROVIDERS: PCP Family Medicine; Visit Provider Podiatrist Foot & Ankle Surgery | DX: I73.9 Peripheral vascular disease, unspecified (principal); B35.1 Tinea unguium; M20.41 Other hammer toe(s) (acquired), right foot; M20.42 Other hammer toe(s) (acquired), left foot | CPT/HCPCS: 11721 ==

== ENCOUNTER → 2024-10-12 13:28 | Outpatient (BNVA) | payer MEDICARE, MEDICAID, SELFPAY | PROVIDERS: PCP Family Medicine; Visit Provider Podiatrist Foot & Ankle Surgery | DX: I73.9 Peripheral vascular disease, unspecified (principal); B35.1 Tinea unguium; M20.41 Other hammer toe(s) (acquired), right foot; M20.42 Other hammer toe(s) (acquired), left foot | CPT/HCPCS: 11721 ==

== ENCOUNTER → 2025-01-19 13:44 | Outpatient (BNVA) | payer MEDICARE, MEDICAID, SELFPAY | PROVIDERS: PCP Electrodiagnostic Medicine; Visit Provider Podiatrist Foot & Ankle Surgery | DX: I73.9 Peripheral vascular disease, unspecified (principal); B35.1 Tinea unguium; L60.8 Other nail disorders; M20.41 Other hammer toe(s) (acquired), right foot; M20.42 Other hammer toe(s) (acquired), left foot | CPT/HCPCS: 11721; 99213 ==

== ENCOUNTER → 2025-03-01 10:57 | Outpatient (BNVA) | payer MEDICARE, MEDICAID, SELFPAY | PROVIDERS: PCP Electrodiagnostic Medicine; Visit Provider Internal Medicine | DX: I48.0 Paroxysmal atrial fibrillation (principal); E78.5 Hyperlipidemia, unspecified; I34.0 Nonrheumatic mitral (valve) insufficiency; J44.9 Chronic obstructive pulmonary disease, unspecified; M79.89 Other specified soft tissue disorders | CPT/HCPCS: 99213 ==